=== PATIENT | male | born 1970 | race Hispanic/Latino ===

== ENCOUNTER 2024-04-19 20:19 | Emergency (ER) | payer OTHER, SELFPAY ==
[2024-04-19 20:22] VITALS: BP 156/94
[2024-04-19 20:27] LABS: Glucose - Point of Care 158 mg/dl (70-99)
[2024-04-19 21:57] VITALS: BP 140/89
[2024-04-19 22:00] VITALS: BP 148/99
--- NOTE | 2024-04-19 22:09 | ED.GENMED ---
History of Present Illness
<TESS Sampson - Last Filed: 04/20/24 01:22>
General
Chief Complaint: Dizziness
Source: patient
Time Seen by Provider: 04/19/24 22:07
History of Present Illness
History of Present Illness:
A 53 yo male with a PMH of a DM, HTN, kidney transplant, alcohol abuse disorder, afib presents to the EM with Dizziness and left sided chest pain x 7 hours. He stated that the dizziness and Left chest pain began suddenly around 3 o'clock today. He
states that the dizziness is 'like a spinning sensation' that makes him feel nauseated and like he's going to pass out. He does admit to one episode of non-billious, non bloody vomiting today. He stated that he took a 2 hour nap in his car when the
dizziness and chest pain began, but upon waking the symptoms hadn't gone away. The dizziness is also associated with diplopia and flashers which improves as long as he isn't moving around. The chest pain doesn't radiate but is associated with
unilateral L hand paresthesias. The chest pain is worse with deep inspiration. He also admits to a headache. He finally To epigastric pain. He states that the pain is worse after meals. He states the pain has been going on for a few months now. He
denies Fever,chills, nasal congestion, ear fullness.
He states that he has no medications changes other than his he is no longer on eliquis. He follows up regularly with his braille translator and pcp for this kidney function and DM. He states that he continues to check his blood sugar using a CGM. He
states that his sugars have been well-controlled ranging from the 180s to the 220.
Past History
<TESS Sampson - Last Filed: 04/20/24 01:22>
Past History
ED Past Medical History: HTN, Hypercholesterolemia, NIDDM and Renal failure
ED Past Surgical History: Orthopedic (right shoulder surgery) and Other (Kidney transplant 05/07/20)
Social History
Tobacco: Non-smoker
Alcohol: None
Personal: (still inthe courts)
Living: with family
Employment: Employed
Family History
Family History: Other (He has a father with chronic renal failure)
Phy Exam
<Dlemar Rose [facility] - Last Filed: 04/20/24 01:22>
General Physical Exam
General Presentation: well appearing and no apparent distress
General age: appears stated age
General Skin: warm and dry
General Habitus: obese
General Mental: alert
General Hydration: appears well hydrated
ENT Exam
ENT Exam: pharynx normal and lymphnodes
Eye Exam
Eye Exam: PERRL and EOMI
Cardiovascular Exam
Cardiovascular Exam: regular rate/rhythm, no gallop, no murmur and normal peripheral pulses
Pulmonary Exam
Pulmonary Exam: lungs clear, no respiratory distress, no rales, no crackles, no wheezing and no cough
Gastrointestinal Exam
Gastrointestinal Exam: normal bowel sounds, soft and non distended
Palpation: right lower quadrant: Mild tenderness and generalized: Moderate tenderness (epigastric )
Abdominal Scars: right lower quadrant
Auscultation of Abdomen: normal
Neurological Exam
Neurological Exam: alert and oriented x3
Musculoskeletal Exam
Musculoskeletal Exam: full ROM and neuro vasc intact
Skin Exam
Skin Exam: normal color and warm/dry
Course
<Delmar Rose [facility] - Last Filed: 04/20/24 01:22>
Orders/Labs/Results
Orders:
Orders
04/19/24 20:20
ECG [Electrocardiogram (*1)] Urgent
Reason for Study: Tachycardia
EKG- Treatment ONCE
04/19/24 22:51
CMP [Comprehensive Metabolic Panel] Urgent
Complete Blood Count/With Diff Urgent
Lipase Urgent
Troponin I Urgent
04/19/24 23:14
Meclizine [Antivert] 25 mg PO NOW STA
04/19/24 23:27
D-Dimer Urgent
04/19/24 23:34
0.9% Sodium Chloride 1000 ml [Nss] 1,000 ml IV BOLUS
04/20/24 00:00
CT Chest Pe Study Urgent
Reason For Exam: pleuritic L CP, elevated d-dimer
Abnormal Lab Results
04/19/24 04/19/24 04/19/24
20: 22:51 23:27
MPV 10.8 H fL
(7.4-10.4)
Abs Immat Gran (auto) 0.1 H 10^3/uL
(0-0.05)
Absolute Neuts (auto) 7.0 H 10^3/uL
(1.4-6.5)
Absolute Lymphs (auto) 0.9 L 10^3/uL
(1.2-3.4)
Immature Gran % 0.6 H %
(0-0.5)
Neutrophils % 79.5 H %
(42.2-75.2)
Lymphocytes % 10.7 L %
(20.5-51.1)
D-Dimer 1.19 H ug/mlFEU
(0.00-0.50)
Carbon Dioxide 19 L mmol/L
(22-30)
BUN 21 H mg/dl
(9-20)
Glucose 179 H mg/dl
(70-99)
Calcium 11.1 H mg/dl
(8.4-10.2)
Alkaline Phosphatase 141 H U/L
(38-126)
POC Glucose 158 H mg/dl
(70-99)
04/19/24 22:51
04/19/24 22:51
Vital Signs
Initial and Last Documented VS:
Initial Vital Signs
Temp Pulse Resp BP Pulse Ox
98.3 F 71 18 156/94 99
04/19/24 20:22 04/19/24 20:22 04/19/24 20:22 04/19/24 20:22 04/19/24 20:22
Last Documented Vital Signs
Temp Pulse Resp BP Pulse Ox
98.3 F 70 6 134/87 100
04/19/24 20:22 04/20/24 01:30 04/20/24 01:30 04/20/24 01:00 04/20/24 01:30
<Coco Layne, DO - Last Filed: 04/20/24 07:59>
Orders/Labs/Results
Orders:
Orders
04/19/24 20:20
ECG [Electrocardiogram (*1)] Urgent
Reason for Study: Tachycardia
EKG- Treatment ONCE
04/19/24 22:51
CMP [Comprehensive Metabolic Panel] Urgent
Complete Blood Count/With Diff Urgent
Lipase Urgent
Troponin I Urgent
04/19/24 23:14
Meclizine [Antivert] 25 mg PO NOW STA
04/19/24 23:27
D-Dimer Urgent
04/19/24 23:34
0.9% Sodium Chloride 1000 ml [Nss] 1,000 ml IV BOLUS
04/20/24 00:00
CT Chest Pe Study Urgent
Reason For Exam: pleuritic L CP, elevated d-dimer
Abnormal Lab Results
04/19/24 04/19/24 04/19/24
20:26 22:51 23:27
MPV 10.8 H fL
(7.4-10.4)
Abs Immat Gran (auto) 0.1 H 10^3/uL
(0-0.05)
Absolute Neuts (auto) 7.0 H 10^3/uL
(1.4-6.5)
Absolute Lymphs (auto) 0.9 L 10^3/uL
(1.2-3.4)
Immature Gran % 0.6 H %
(0-0.5)
Neutrophils % 79.5 H %
(42.2-75.2)
Lymphocytes % 10.7 L %
(20.5-51.1)
D-Dimer 1.19 H ug/mlFEU
(0.00-0.50)
Carbon Dioxide 19 L mmol/L
(22-30)
BUN 21 H mg/dl
(9-20)
Glucose 179 H mg/dl
(70-99)
Calcium 11.1 H mg/dl
(8.4-10.2)
Alkaline Phosphatase 141 H U/L
(38-126)
POC Glucose 158 H mg/dl
(70-99)
04/19/24 22:51
04/19/24 22:51
Vital Signs
Initial and Last Documented VS:
Initial Vital Signs
Temp Pulse Resp BP Pulse Ox
98.3 F 71 18 156/94 99
04/19/24 20:22 04/19/24 20:22 04/19/24 20:22 04/19/24 20:22 04/19/24 20:22
Last Documented Vital Signs
Temp Pulse Resp BP Pulse Ox
98.3 F 70 6 134/87 100
04/19/24 20:22 04/20/24 01:30 04/20/24 01:30 04/20/24 01:00 04/20/24 01:30
<TESS Sapmson - Last Filed: 04/20/24 01:22>
MDM/Problems Addressed
Differential Diagnosis Includes:
pulmonary embolism, myocardial infarction, acute pancreatitis.
<TESS Sampson - Last Filed: 04/20/24 01:22>
*Critical Care Note
Total Time (30-74mins, 75-104mins- exclusive of procedures): Not Applicable
<Coco Layne DO - Last Filed: 04/20/24 07:59>
*Radiology
Radiology exam reviewed: radiology read reviewed
*Pulse Oximetry
Patient hypoxic: no
*EKG
Interpreted by ED Provider?: Yes
Comparison EKG: no changes (Unchanged from previous November 2022)
Rate: normal
Rhythm: sinus and PAC's
[place]: left axis deviation
Interval: normal interval
QRS Pattern: left vent hypertrophy
Ischemia: no ischemia
*Photo Lab Technician Interpretation
Rate: normal
Interpretation: normal
Rhythm: sinus
<TESS Sampson - Last Filed: 04/20/24 01:22>
Update Note
Update Note:
04/20/2024 0120 AM: Patient was resting comfortably when I entered the room. Chatted with the patient about symptoms of dizziness which he stated have improved significantly. Will proceed with a walking trial for return of symptoms.
ED Attending Note
<TESS Sampson - Last Filed: 04/20/24 01:22>
-
Portions of this chart may have been created with voice recognition software.� Occasional wrong word or��sound alike� substitutions may have occurred due to the inherent limitations of voice recognition software.
<Coco Layne DO - Last Filed: 04/20/24 07:59>
ED Attending Note
Patient seen and examined by attending physician: Yes
I performed the substantive portion of visit, reviewed & personally made and approve the management plan that is documented in note by myself or SALLY.: Yes
ED Attending Note:
This is a 53-year-old gentleman who has extensive past medical history including insulin requiring diabetes, chronic kidney disease status post renal transplant 2019�no longer requiring dialysis, hypertension, atrial tachycardia. Since last
hospitalization November 2022 where he was admitted for HHNK, started on insulin at that time patient has been doing quite well, blood sugars have been fairly well-controlled 160-220 average. He has maintained normal renal function, follows regularly
with braille translator as well as renal transplant specialist at [place].
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
lightheadedness as well as some palpitations feeling that his heart was beating somewhat hard and mildly rapidly but denies irregular heartbeat and also noted mild left anterior chest discomfort. No history of similar episodes in the past.
He left the restaurant, went out to his car to rest and took a 2-hour nap but then when he attempted to get up out of the car dizziness and nausea recurred. Symptoms seem worse when he attempts to get up and move about, improves when he sits still.
He has had mild frontal headache but no nasal congestion, no earache, no hearing difficulty. No cough no shortness of breath but does note that left-sided chest pain seems worse when he takes a deep breath.
Currently denies headache. He has not had a fever nor chills.
GENERAL: 53-year-old gentleman appears his stated age, bright and alert, pleasant, appears in no acute distress.
EYE: pupils equal and reactive. Extraocular muscles intact. Negative test of skew. Questionably minimally positive head impulse to the left. Anicteric
NECK: Supple, nontender, no meningismus, no significant adenopathy.
ENT: posterior pharynx is clear, oral mucosa is moist. TM clear b/l, nares patent.
CARDIAC: Regular rate and rhythm. no murmur.
LUNGS: Clear breath sounds bilaterally, no acute respiratory distress, no wheezes/rales/rhonchi
ABDOMEN: Soft, nondistended, without focal tenderness, no r/g, normoactive BS.
NEUROLOGICAL: Alert and oriented x3, no focal neuro deficits. Mild vertiginous symptoms reproducible with sitting up, lying flat
SKIN: Warm and dry, normal color, skin intact. No rash.
MUSCULOSKELETAL: No C/C/E. peripheral pulses are full and equal b/l. No palpable tenderness.
PSYCH: Normal and appropriate interaction.
Concern for acute vertigo which appears more peripheral/positional in nature.
Other consideration is electrolyte abnormality, tachyarrhythmia, anemia
With complaints of left anterior chest pain, somewhat pleuritic in nature must consider ACS, pneumonia, PE. Overall chest pain appears mild, intermittent and somewhat of its secondary issue, no back pain, dissection is unlikely.
Patient has CGM, he has had no episodes of hypoglycemia nor significant hyperglycemia. Accu-Chek upon arrival satisfactory at 158.
Will trial a dose of meclizine. Will check labs including troponin and D-dimer.
EKG shows normal sinus rhythm with PAC, LVH, overall similar to previous EKG November 2022.
Will consider imaging depending on results
04/20/2024 0141 AM
Patient reports complete relief of dizziness, nausea after 1 dose of meclizine. Ambulating about exam room with steady unaided gait and remains asymptomatic.
Labs are unremarkable save for elevated D-dimer thus CT of the chest/PE study obtained which is negative for PE.
There is note on CT of the left upper lobe nodule that has increased in size compared to previous CAT scan 2019. There is note of mild right lower lobe bronchial wall thickening concerning for infectious/inflammatory process.
Patient continues to have no cough, no fever, no shortness of breath, I suspect this right lower lobe bronchial wall thickening is nonspecific inflammatory in nature.
Patient notified of pulmonary nodule and need for follow-up.
Will discharge to home with a prescription for meclizine for as needed dizziness.
Discussed importance of remaining well-hydrated on a daily basis.
Prompt follow-up with PCP.
Return precautions discussed.
Discharge Plan
Departure
Patient Disposition: Home (Routine Discharge)
Date of Disposition: 04/20/24
Time of Disposition: 01:37
Patient with high blood pressure during this ER visit?: No
Condition: Good
Discharge Problem:
Benign paroxysmal positional vertigo, nonspecific left chest pain
Instructions: Vertigo (a Type of Dizziness) (DC), Chest Pain PCP Follow Up
Prescriptions:
New
meclizine 25 mg tablet
25 mg PO QID PRN (Reason: dizziness, nausea) Qty: 20 0RF
No Action
tacrolimus 0.5 MG capsule
1 mg PO BID
pantoprazole 40 MG tablet,delayed release (DR/EC)
40 mg PO DAILY
sildenafil 50 mg tablet
50 mg PO DAILYPRN PRN (Reason: ed)
mycophenolate sodium 180 mg tablet,delayed release (DR/EC)
360 mg PO BID
metoprolol tartrate 25 mg Tablet
75 mg PO BID Qty: 180 1RF
(DME) Contour Next Test Strips Strip
Qty: 200 0RF
Rx Instructions:
Pt testing 4 times a day
(DME) pen needle, diabetic [BD Ultra-Fine Kellee Pen Needle] 32 gauge x 5/32' Needle
Qty: 1,200 0RF
Rx Instructions:
As Directed
(DME) lancets [Color Lancets] 21 gauge Misc
Qty: 200 0RF
Rx Instructions:
Pt testing 4 times a day
(DME) pen needle, diabetic [BD Ultra-Fine Kellee Pen Needle] 32 gauge x 5/32' Needle
Qty: 200 0RF
Rx Instructions:
Pt taking insulin 4 times a day
insulin aspart U-100 [Novolog FlexPen U-100 Insulin] 100 unit/mL (3 mL) insulin pen
16 unit SC AC
insulin glargine [Lantus Solostar U-100 Insulin] 100 unit/mL (3 mL) insulin pen
35 unit SC HS
Referrals:
Tita Resendez PA-C [Family Provider] - Call in 1-3 days for appt
Interventions
Interventions:
*Risk Screen - Suicide Last Done: 04/19/24 22:42
*General Assessment Last Done: 04/19/24 20:22
*Neglect/Abuse Screening Last Done: 04/19/24 22:42
ED- Fall Risk Assessment Last Done: 04/20/24 01:48
*ED COVID-19 Vaccine History Last Done: 04/19/24 22:42
*Nursing Disposition Last Done: 04/20/24 01:48
ED- Neurological Assessment Last Done: 04/19/24 22:42
ED- Cardiac Assessment Last Done: 04/19/24 22:42
ED Swallowing Screen Last Done: 04/19/24 22:42
Discharge Date and Time
Discharge Date/Time: 04/20/24 01:51
Print Language: [place]AST [place]
[2024-04-19 22:41] VITALS: BMI 30.3
[2024-04-19 23:00] VITALS: BP 148/84
[2024-04-19 23:00] LABS: % Basophils 0.7 % (0-2); % Eosinophils 1.6 % (0-6); % Immature Granulocytes 0.6 % (0-0.5); % Lymphocytes 10.7 % (20.5-51.1); % Monocytes 6.9 % (1.7-9.3); % Neutrophils 79.5 % (42.2-75.2); Absolute Basophils 0.1 10^3/uL (0-0.2); Absolute Eosinophils 0.1 10^3/uL (0-0.7); Absolute Immature Granulocytes 0.1 10^3/uL (0-0.05); Absolute Lymphocytes 0.9 10^3/uL (1.2-3.4); Absolute Monocytes 0.6 10^3/uL (0.1-0.6); Hematocrit 42.1 % (39.0-52.0); Hemoglobin 14.5 g/dL (13.0-18.0); Mean Corp Hgb Conc. 34.4 g/dL (33.0-37.0); Mean Corpuscular Hgb 30.1 pg (27.0-31.0); Mean Corpuscular Volume 87.5 fL (80.0-94.0); Mean Platelet Volume 10.8 fL (7.4-10.4); Nucleated Red Blood Cells % 0 % (-); Platelet Count 171 10^3/uL (130-400); Red Blood Cell Count 4.81 10^6/uL (4.70-6.10); Red Cell Dist. Width 12.7 % (11.5-14.5); White Blood Cell Count 8.8 10^3/uL (4.8-10.8)
[2024-04-19 23:21] LABS: ALT (SGPT) 39 U/L (0-50); AST (SGOT) 35 U/L (17-59); Albumin 4.7 g/dl (3.5-5.0); Alkaline Phosphatase 141 U/L (38-126); Blood Urea Nitrogen 21 mg/dl (9-20); Calcium 11.1 mg/dl (8.4-10.2); Carbon Dioxide 19 mmol/L (22-30); Chloride 104 mmol/L (98-107); Estimated Creatinine Clearance 74 ml/min; Glucose 179 mg/dl (70-99); Lipase 152 U/L (23-300); Potassium 4.6 mmol/L (3.5-5.1); Sodium 137 mmol/L (135-145); Total Bilirubin 0.9 mg/dl (0.2-1.3); Total Protein 7.4 g/dl (6.3-8.2); eGFR > 60.00
[2024-04-19 23:25] LABS: Troponin I < 0.012 ng/ml
[2024-04-19] MEDS: ANTIVERT 25 MG PO (23:28)
[2024-04-19 23:51] LABS: D-Dimer 1.19 ug/mlFEU (0.00-0.50)
[2024-04-19] MEDS: NSS 1000 IV (23:56)
[2024-04-20] VITALS: BP 134/79
[2024-04-20 01:00] VITALS: BP 134/87
== END 2024-04-20 01:51 | disposition home or self-care (01) ==
LOC: EMR 20:19
PROVIDERS: Student in an Organized Health Care Education/Training Program; EMERGENCY PHYSICIAN Emergency Medicine; FAMILY PHYSICIAN Physician Assistant
DX: H81.10 Benign paroxysmal vertigo, unspecified ear (principal); R07.89 Other chest pain; E11.22 Type 2 diabetes mellitus with diabetic chronic kidney disease; I12.9 Hypertensive chronic kidney disease with stage 1 through stage 4 chronic kidney disease, or unspecified chronic kidney disease; I48.91 Unspecified atrial fibrillation; N18.9 Chronic kidney disease, unspecified; Z94.0 Kidney transplant status
CPT/HCPCS: 99285; 96360; 71275; 80053; 82962; 83690; 84484; 85025; 85379; 93005; Q9967

== ENCOUNTER → 2024-05-12 12:49 | Outpatient (REF) | payer OTHER, SELFPAY | LOC: RAD 12:49 | PROVIDERS: ATTENDING PHYSICIAN Internal Medicine Critical Care Medicine; FAMILY PHYSICIAN Physician Assistant | DX: R91.1 Solitary pulmonary nodule (principal) | CPT/HCPCS: 71250 ==

== ENCOUNTER 2024-06-01 06:18 | Day surgery (SDC) | payer OTHER, SELFPAY ==
--- NOTE | 2024-05-25 15:16 | PTCARENOTE ---
EKG from 05/12 abn, anesthesia requested cardiology note. Cardiology note scanned.
[2024-06-01] VITALS (9 sets, daily range): BP systolic 115–133; BP diastolic 74–87; BMI 32.2
[2024-06-01 06:50] LABS: Glucose - Point of Care 232 mg/dl (70-99)
[2024-06-01] MEDS: NOVOLOG vial 2 UNITS SC (07:30)
[2024-06-01 09:08] LABS: Glucose - Point of Care 190 mg/dl (70-99)
== END 2024-06-01 11:20 | disposition home or self-care (01) ==
LOC: GI 06:18
PROVIDERS: ATTENDING PHYSICIAN Internal Medicine Critical Care Medicine
DX: C7A.090 Malignant carcinoid tumor of the bronchus and lung (principal); R91.1 Solitary pulmonary nodule
CPT/HCPCS: 31629; 31623; 31624; 31627; 31654; 88172; 88173; 88305; 71045; 76000; 82962; 88112; 88333; 88334; 88341; 88342; 94640; C1887

== ENCOUNTER → 2024-06-22 07:42 | Outpatient (REF) | payer OTHER, SELFPAY | LOC: PET 07:42 | PROVIDERS: ATTENDING PHYSICIAN Internal Medicine Critical Care Medicine | DX: C7A.090 Malignant carcinoid tumor of the bronchus and lung (principal) | CPT/HCPCS: 78815 ==

== ENCOUNTER 2024-07-13 05:06 | Inpatient (IN) | payer OTHER, SELFPAY ==
[2024-07-07 09:11] LABS: INR 0.89; PT 12.3 Sec (11.4-14.6)
[2024-07-07 09:12] LABS: APTT 26.9 Sec (23.4-35.0)
[2024-07-07 09:26] LABS: Urine Albumin Trace (Neg - Trace); Urine Bilirubin Negative (Negative); Urine Character Clear (Clear); Urine Color Yellow; Urine Glucose 3+ (Negative); Urine Ketone Negative (Negative); Urine Leukocyte Negative (Negative); Urine Nitrite Negative (Negative); Urine Occult Blood Negative (Negative); Urine Urobilinogen Negative (Neg - 1+)
[2024-07-07 09:35] LABS: ALT (SGPT) 35 U/L (0-50); AST (SGOT) 29 U/L (17-59); Albumin 4.4 g/dl (3.5-5.0); Alkaline Phosphatase 192 U/L (38-126); Blood Urea Nitrogen 14 mg/dl (9-20); Calcium 10.4 mg/dl (8.4-10.2); Carbon Dioxide 26 mmol/L (22-30); Chloride 101 mmol/L (98-107); Estimated Creatinine Clearance 81 ml/min; Glucose 270 mg/dl (70-99); Potassium 4.3 mmol/L (3.5-5.1); Sodium 136 mmol/L (135-145); Total Bilirubin 0.9 mg/dl (0.2-1.3); eGFR > 60.00
--- NOTE | 2024-07-07 09:35 | CM ---
Met with Mr. Garcia in [facility];. He states prior to admission he resides alone in a one story mobile home with three steps to enter. He states prior to admission he was independent with ambulation and adls. He states he does not have any DME in the
home. He states he has a prescription plan. He states he is planning on staying with his cousin for two days before going to his home after surgery. The discharge plan is to go to his cousin home for two days and then return home alone with a home
visit by the Transitional Care Nurse when medically stable.
We reviewed pre-op and post-op routines. We reviewed the shower instructions. He has the soap, written instruction and the Thoracic,(lung) Surgery Booklet. We also reviewed restrictions including lifting and driving restrictions. We discussed a
home visit by the Transitional Care Nurse. He is agreeable to a home visit. The plan is for Robotic Left Lobectomy on Saturday, July 13, 2024.
[2024-07-07 09:38] LABS: % Basophils 0.9 % (0-2); % Eosinophils 2.8 % (0-6); % Immature Granulocytes 0.9 % (0-0.5); % Monocytes 9.3 % (1.7-9.3); % Neutrophils 68.1 % (42.2-75.2); Absolute Basophils 0.1 10^3/uL (0-0.2); Absolute Eosinophils 0.2 10^3/uL (0-0.7); Absolute Immature Granulocytes 0.1 10^3/uL (0-0.05); Absolute Monocytes 0.5 10^3/uL (0.1-0.6); Absolute Neutrophils 3.7 10^3/uL (1.4-6.5); Hematocrit 40.7 % (39.0-52.0); Mean Corp Hgb Conc. 34.4 g/dL (33.0-37.0); Mean Corpuscular Hgb 30.6 pg (27.0-31.0); Mean Corpuscular Volume 88.9 fL (80.0-94.0); Mean Platelet Volume 11.3 fL (7.4-10.4); Nucleated Red Blood Cells % 0 % (-); Platelet Count 144 10^3/uL (130-400); Red Blood Cell Count 4.58 10^6/uL (4.70-6.10); Red Cell Dist. Width 12.4 % (11.5-14.5); White Blood Cell Count 5.4 10^3/uL (4.8-10.8)
[2024-07-13] VITALS (18 sets, daily range): BP systolic 111–159; BP diastolic 74–112; BMI 31.1
--- NOTE | 2024-07-13 06:27 | W.CVOR.SURPR ---
CVOR Surgeon Immed Pre Op
-
I have examined this patient prior to performance of the scheduled procedure.
The patient's condition is unchanged from the time of the dictated/written History and
Physical and the patient is able to undergo the scheduled procedure.
RATS LEFT Upper lobectomy + LN Dissection for carcinoid tumor
--- NOTE | 2024-07-13 07:39 | PTCARENOTE ---
Admitted patient to CVICU. Preop prep completed. Clipped and CHG wipes applied. Transported to [facility] at approx 0640
[2024-07-13 07:55] LABS: Urine Albumin Trace (Neg - Trace); Urine Bilirubin Negative (Negative); Urine Character Clear (Clear); Urine Color Yellow; Urine Glucose 3+ (Negative); Urine Ketone Negative (Negative); Urine Leukocyte Negative (Negative); Urine Nitrite Negative (Negative); Urine Occult Blood Negative (Negative); Urine Urobilinogen Negative (Neg - 1+)
--- NOTE | 2024-07-13 08:31 | CM ---
Reviewed chart. Mr. Garcia is in the operating room today. Prior to admission he resides alone in a one story home with three steps to enter. Prior to admission he was independent with ambulation and adls. He does not have any DME in the home. He
has a prescription plan. He is planning on staying two days with his cousin when he goes home. Medical work-up in progress. The discharge plan is to go to his cousin's home for two days and a home visit by the Transitional Care Nurse when
medically stable.
[2024-07-13 08:58] LABS: Glucose - Point of Care 239 mg/dl (70-99)
[2024-07-13 09:50] LABS: B.E. - POC -5.8 mmol/L; Glucose - POC 303 mg/dl (70-99); HCO3 - POC 23 mmol/L (21-28); Hematocrit - POC 43 % PCV (42-52); Hemodilution- POC No; Hemoglobin Calculated - POC 14.5; Ionized Calcium - POC 1.46 mmol/L (1.15-1.33); O2 Saturation %Calculated-POC 96.1 % (94-98); PCO2 - POC 58 mmHg (35-48); PO2 - POC 102 mmHg (83-108); POC Comment ROBOT LUNG; Potassium - POC 4.8 mmol/L (3.5-5.1); Sodium - POC 136 mmol/L (136-145); Specimen Type - POC Arterial; pH - POC 7.21 (7.35-7.45)
[2024-07-13 10:14] LABS: B.E. - POC -5.5 mmol/L; Glucose - POC 302 mg/dl (70-99); HCO3 - POC 23 mmol/L (21-28); Hematocrit - POC 42 % PCV (42-52); Hemodilution- POC No; Hemoglobin Calculated - POC 14.4; Ionized Calcium - POC 1.42 mmol/L (1.15-1.33); O2 Saturation %Calculated-POC 97.2 % (94-98); PCO2 - POC 54 mmHg (35-48); PO2 - POC 111 mmHg (83-108); POC Comment SAMPLE B2; Potassium - POC 5.1 mmol/L (3.5-5.1); Sodium - POC 136 mmol/L (136-145); Specimen Type - POC Arterial; pH - POC 7.23 (7.35-7.45)
[2024-07-13 11:03] LABS: Glucose - Point of Care 214 mg/dl (70-99)
[2024-07-13 11:56] LABS: Glucose - Point of Care 243 mg/dl (70-99)
--- NOTE | 2024-07-13 12:03 | CON.INTV ---
Consultation
Consultation Request
Date/Time Consultation Requested: 07/13/2024-12:30 PM
Date/Time Consultation Performed: 07/13/2024-1 PM
Requesting Provider: Thoracic surgery
Performing Provider: Dr. Parekh
Reason for Consultation: Postoperative critical care management
Medical History
-
Chief Complaint: Lung cancer
History of Present Illness:
53-year-old former smoking male recently diagnosed with a solitary left upper lobe pulmonary nodule 2 cm and underwent robotic bronchoscopy noted to have lung cancer and underwent robotic assisted thoracic surgery with left upper lobectomy and lymph
node dissection-Dr. Vargas-07/13/2024-technical director consulted for postoperative critical care management 07/13/2024.. The patient is seen postoperatively in the medical intensive care unit, extubated, however, very somnolent and unable to obtain review
of systems, snoring with probable Hypopneas.
Past Medical History
Past Medical History: None (Hypertension. Hyperlipidemia. ESRD/hemodialysis. Atrial fibrillation/flutter. Diabetes. Right foot surgery. Umbilical herniography with mesh. AV fistula. Kidney transplant 2019.)
Social History
Tobacco: Former Smoker (1 pack/week for 7 years)
Alcohol: None
Drug: None
Living: With Family
Occupational Exposures: No known asbestos exposure
Environmental Exposures: No known tuberculosis exposure
Family History
Family History: Other (Father-diabetes and renal disease. Mother-hypertension and diabetes. Paternal grandfather-diabetes. Paternal grandmother-renal disease.)
Allergies / Home Medications
Allergies
Allergy/AdvReac Type Severity Reaction Status Date / Time
shellfish derived Allergy Rash Verified 07/03/24 09:14
vancomycin Allergy feeling of Verified 07/03/24 09:14
body 'hot'
and some
'itching'
Home Medications
�Medication �Instructions �Recorded �Confirmed �Last Taken �Type
pantoprazole 40 mg tablet,delayed 40 mg PO DAILY 12/28/21 07/13/24 07/12/24 History
release
tacrolimus 0.5 mg capsule, 1 mg PO HS 12/28/21 07/13/24 07/12/24 History
immediate-release
mycophenolate sodium 180 mg 360 mg PO BID 09/14/22 07/13/24 07/12/24 History
tablet,delayed release
sildenafil 50 mg tablet 50 mg PO DAILYPRN PRN ed 09/14/22 07/03/24 05/25/24 History
blood sugar diagnostic (Contour #200 ea 12/17/22 07/03/24 Unknown Rx
Next Test Strips)
lancets 21 gauge (Color Lancets) #200 ea 12/17/22 07/03/24 Unknown Rx
pen needle, diabetic 32 gauge x #1,200 ea 12/17/22 07/03/24 Unknown Rx
5/32' (BD Ultra-Fine Kellee Pen
Needle)
pen needle, diabetic 32 gauge x #200 ea 12/20/22 07/03/24 Unknown Rx
5/32' (BD Ultra-Fine Kellee Pen
Needle)
insulin aspart U-100 100 unit/mL 18 unit SC AC Diabetes 04/19/24 07/13/24 07/12/24 History
(3 mL) subcutaneous pen (Novolog
FlexPen U-100 Insulin aspart)
insulin glargine 100 unit/mL (3 37 unit SC HS Diabetes 04/19/24 07/13/24 07/12/24 21:30 History
mL) subcutaneous pen (Lantus
Solostar U-100 Insulin)
meclizine 25 mg tablet 25 mg PO QID PRN dizziness, nausea 04/20/24 07/03/24 Unknown Rx
#20 tabs
metoprolol tartrate 75 mg tablet 75 mg PO BID 05/29/24 07/13/24 07/12/24 History
tacrolimus 0.5 mg capsule, 2 mg PO DAILY 05/29/24 07/13/24 07/12/24 History
immediate-release
Review of Systems
-
Unable to Obtain full review of systems at this time due to: Other (Per HPI)
Vitals / Labs / Diagnostic Testing
Vital Signs
Temp Pulse Resp BP Pulse Ox
97.8 F 67 16 133/90 99
07/13/24 05:33 07/13/24 05:33 07/13/24 05:33 07/13/24 05:33 07/13/24 05:33
Lab Data
07/07/24 08:37
07/07/24 08:37
Diagnostic Testing:
Physical Exam
-
Exam:
Well-nourished and well-developed in no apparent distress
HEENT-atraumatic, normocephalic, thick neck
Neck-supple, no JVD, no bruit
Heart-regular rate and rhythm-no murmurs, rubs or gallops
Chest-clear to auscultation, no wheezes, crackles, left-sided chest tube on waterseal
Back-no tenderness
Abdomen-soft, nontender, nondistended, no hepatosplenomegaly
Extremities-no cyanosis, clubbing, edema and good peripheral pulses
Integument-intact, no rashes, lesions or ecchymosis
Neurology-sedated, lethargic, otherwise alert and oriented, nonfocal motor and sensory exam
Assessment
-
53-year-old former smoking male recently diagnosed with a solitary left upper lobe pulmonary nodule 2 cm and underwent robotic bronchoscopy noted to have lung cancer and underwent robotic assisted thoracic surgery with left upper lobectomy and lymph
node dissection-Dr. Vargas-07/13/2024-technical director consulted for postoperative critical care management 07/13/2024.
Lung cancer-carcinoid tumor-stage I
Enlarging pulmonary nodule-1.5 cm up to 1.9 cm 05/2024
Status post robotic bronchoscopy 06/01/2024-positive for carcinoid tumor
Status post robotic assisted thoracic surgery with left upper lobectomy and lymph node dissection-Dr. Vargas-07/13/2024
[id number]
ANALI suspected
Conditions present prior to admission:
Hypertension.
Hyperlipidemia.
ESRD/hemodialysis.
Atrial fibrillation/flutter.
Diabetes.
Obesity-BMI 31
Right foot surgery. Umbilical herniography with mesh. AV fistula. Kidney transplant 2019.
Plan
Radiographs, bronchoscopy results, pathology all summarized below
Stable postoperatively in the cardiovascular intensive care unit
Supplemental oxygen as needed
Incentive spirometry
Aspiration precautions
Nebulizers if needed-currently not bronchospastic
Operative records reviewed
Chest tubes per surgery-monitor output-currently on waterseal
Follow hemoglobin
Transfuse if needed
Monitor renal function
Immunosuppressive medications for renal transplantation-follows with Dr. Torres
Monitor for arrhythmias-has a history of paroxysmal atrial fibrillation
Monitor blood sugar
Insulin drip or supplementation as needed
Needs much better outpatient diabetes control-A1c 11%
DVT prophylaxis
Nutrition
Early mobilization
Outpatient pulmonary/sleep disorders [id number] appointment 12 noon 08/25/[address] Parekh-eventual repeat PFTs-would evaluate for sleep apnea as well
Critical care statement: A total of 55 minutes of critical care time was provided for this patient today. This includes management of unstable vital signs, evaluation of the patient at bedside, reviewing the patient's pertinent medical records
including radiographs, microbiology, laboratory evaluations, and discussion with primary team, consultants, pharmacy, nutrition, physical therapy, case management, charge nurse, critical care nursing, and respiratory therapy.
Diagnostic data:
Chest x-ray 07/22/18-possible mild right lower lobe pneumonia, improved.
CT chest 07/22/18-no evidence for pulmonary embolism, moderate groundglass opacifications in both lower lobes concerning for developing pneumonia versus interstitial lung disease, stable circumscribed noncalcified pulmonary nodule left upper lobe
approximately 1.5 cm, slightly progressed.� Probable parenchymal scarringChest x-ray 12/14/22-NAD, no focal consolidation
CT chest 04/20/24-no evidence for pulmonary embolism, 1.9 cm nodule left upper lobe with lobulated margins increased in size compared to 07/2018.
PET scan 06/22/24-2 cm left upper lobe carcinoid tumor is added measuring 3.1 SUV, no evidence for metastatic disease
6 minute walk test 05/05/24-ambulated 1200 feet with desaturation romy of 97% maximal heart rate 110.� Maximum dyspnea scale score 1.0.� No supplemental oxygen required�����
PFT 05/05/24-FEV1 3.09-95%, FVC 3.62-86%, TLC 84%, RV 70%, DLCO 104%, DLCO/ 115%.� Mild restriction.
Bronchoscopy 06/01/2024-left upper lobe brush consistent with carcinoid tumor, left upper lobe transbronchial needle aspiration consistent with carcinoid tumor, left upper lobe bronchoalveolar lavage negative for malignant cells
Bronchoscopy 06/01/2024-left upper lobe nodule biopsy well-differentiated neuroendocrine neoplasm compatible with carcinoid tumor
Data Reviewed
-
PFT: Tracing personally visualized and interpreted and Report reviewed by me
EKG: Report reviewed by me
Radiology: Image personally visualized and interpreted and Report reviewed by me
CT Scan: Image personally visualized and interpreted and Report reviewed by me
Medical Tests (Nuc Med, Echo etc): Report reviewed by me
Labs: Labs reviewed by me
Old Records: Reviewed
Critical Care Time (in minutes): 55
[2024-07-13] MEDS: ANCEF IV (12:05)
--- NOTE | 2024-07-13 12:07 | W.PN.CT.SURG ---
CT Surgery Operative Note
-
THORACIC SURGERY OPERATIVE REPORT
Preoperative Diagnosis: Left Upper Lobe Carcinoid Tumor
Postoperative Diagnosis: Same
Procedure(s) Performed:
1. Robotic Assisted Thoracic Surgery (RATS), Left Upper Lobectomy
2. Radical Lymph Node dissection
3. Regional Block By Anesthesia
Date of Surgery: 07/13/24
Comorbidities:
1. Pulmonary Carcinoid
2. Type 2 Diabetes
3. HTN
4. Renal Failure, requiring DH
5. Renal Transplant, on chronic immunosuppression
6. H/o arrythmias, SVT
7. Morbidly Obese
8. Active Tobacco Abuse
Attending Surgeon: Luis Alberto Vargas MD, MS
Assistants: Carmenza Ernst PA-C (present and necessary to compounding assistant, exchanging robotic instruments, retraction, suction, exposure, suture management, and wound closure under my direction)
Anesthesiology: Alfred Welch MD and Nik Lezama CRNA
Scrub and Circulating RNs: Hedy Swenson RN, Renetta Hoskins RN
Anesthesia: Dual Lumen GETA
EBL: 100 cc
Products: None
Indication(s) for Procedures: This is a 53-year-old male who was found to have a left upper lobe nodule. Biopsy demonstrated minute fragments of well-differentiated neuroendocrine neoplasm compatible with a carcinoid tumor. Given the location of
the tumor, the patient was aware that he would likely need to undergo a full left upper lobectomy with lymph node dissection. Preoperative discussion with his transplant center was performed in order to help manage his medications. Plan was for
left upper lobectomy with lymph node dissection.
Findings: There were no obvious intrathoracic lesions concerning for metachronous disease. He had a well-defined left upper and left lower lobe fissure. Given his history of transplant and chronic immunosuppression, his tissue quality was quite
abnormal. I was able to individually isolate the posterior ascending and truncal branches as well as the lingular branches leading to the left upper lobe. These were then sequentially divided. The bronchus leading to the left upper lobe were
divided as of the veins individually. At the conclusion of the case, he had no obvious air leak, and unobstructed flow to the remaining left lower lobe.
Specimen(s):
Station 10, x 3 nodes
Station 11, x 1 nodes
Station 5/6, x 4 nodes
left upper lobe
Description of Procedure: The patient was taken to the operating room. Induction via general anesthesia with endotracheal intubation was performed and peripheral venous access and arterial monitoring were inserted. Their identity and procedure to be
performed were verified and they were positioned with the left side up on the operating table. The patient was then prepped and draped in a sterile fashion. A preoperative time-out was performed with all members of the team present. A Veress needle
was used to insufflate the chest after isolating the lung. An 8 mm port was placed in the midaxillary line at approximately the eighth intercostal space and confirmed to be intrathoracic without significant pulmonary injury. The chest was surveyed
for any evidence of metastatic disease. Patient tolerate insufflation without complication. 2 additional 12 mm trocars were placed on either side under camera guidance and a third 8 mm trocar was placed along the back. A 12 mm phlebotomist lab assistant port was
placed in the 11th intercostal space above the insertion of the diaphragm.
The thoracic cavity was inspected for evidence of metastatic disease. None was observed. We started with mobilization of the inferior pulmonary ligament. We worked our way clockwise dissecting out the hilum and harvest any lymph nodes identified.
The pulmonary arteries and veins leading to the left upper lobe were identified and skeletonized. They were sequentially divided with a white load stapler. I had dissected the bronchus leading to the apical and lingular segments and able to divide
them individually. The specimen was displaced toward the apex while a chest tube was inserted and placed laterally towards the apex. I noticed there was some oozing at the bronchial stump, this was clipped with a single small/medial metal clip for
hemostasis with good effect. Coseal was used to reinforce the staple lines and hilum. The left upper was then placed into a specimen bag and extracted from the chest cavity. After confirming hemostasis, the lung was fully inflated and all ports
were removed. Incisions were closed in 3 layers including the fascia, dermal, and epidermis. Additional local anesthesia was injected into all incision sites. The skin wound was cleansed and sealed with Dermabond glue.
All instrument, sponge, and needle counts were confirmed to be correct x 2 at the end of the operation. The patient was transferred to the cardiac intensive care unit extubated in critical but stable condition.
I, Dr. Luis Alberto Vargas, was present, scrubbed for, and performed all critical elements of this procedure.
Luis Alberto Vargas MD, MS
Cardiothoracic Surgeon
[facility]
This operative dictation was created using the S[employer]ula dictation system. Please excuse any grammatical, typographical, or 'sound alike' errors
[2024-07-13] MEDS: NOVOLOG vial 2 UNITS SC (12:10)
[2024-07-13] MEDS: DILAUDID 0.5 MG IV ×3 (12:17→17:23)
[2024-07-13] MEDS: MIRALAX PO (13:11)
[2024-07-13] MEDS: ANCEF 10 IV ×2 (13:11)
[2024-07-13] MEDS: HEPARIN 5000 UNITS SC ×2 (13:12→15:48)
[2024-07-13] MEDS: SENOKOT PO (13:12)
--- NOTE | 2024-07-13 13:24 | PTCARENOTE ---
received pt from PACU into 2261, pt is AAOX4, PISANO to simple commands, pupils +2 equally reactive to light. sinus tachycardia on tele w HR low 100's, BP via right radial renetta 140's/ 80-90, + peripheral pulses, no edema noted. Lung sounds diminished,
pox 94% on 2L NC. Hypoactive BS, pt denies nausea. Pt is DTV. Left lateral chest a incision w surgical glue intact, puncture site a glue intact. Left lateral pleural CT to H20 seal a minimal amount of red drainage. Right radial renetta leveled and
zeroed, PIV x2 flush easily, left arm fistula noted. CT SALLY made aware of elevated BP and c/o pain to surgical site, awaiting orders. Safety precautions reviewed w the pt and questions encouraged.
[2024-07-13] MEDS: ROXICODONE 10 MG PO ×2 (13:54→19:39)
[2024-07-13] MEDS: ULTRAM 50 MG PO (14:31)
[2024-07-13] MEDS: PROGRAF 2 MG PO (14:31)
--- NOTE | 2024-07-13 15:15 | PTCARENOTE ---
pt medicated for pain, minimal drainage from CT
[2024-07-13] MEDS: LOPRESSOR 75 MG PO ×2 (15:47→19:39)
[2024-07-13 16:02] LABS: Glucose - Point of Care 252 mg/dl (70-99)
[2024-07-13] MEDS: FLEXERIL 10 MG PO (17:18)
[2024-07-13] MEDS: ANCEF 5 IV (17:20)
[2024-07-13] MEDS: NOVOLOG FLEXPEN 18 UNITS SC (17:29)
[2024-07-13 17:30] LABS: Glucose - Point of Care 268 mg/dl (70-99)
[2024-07-13] MEDS: MYFORTIC DELAYED REL. 360 MG PO (19:39)
--- NOTE | 2024-07-13 20:13 | PTCARENOTE ---
pt assisted OOB to chair, tolerated well. Assisted w PM mouth care and CHG bath, monitor patches and gown changed. Pt medicated for pain. Minimal red drainage from CT. Pt medicated for pain. IS reviewed and encouraged. Pt BP remain elevated at
times, cardene ordered by daytime CT SALLY, interaction w renal transplant medications per pharmacy. Night CT SALLY made aware. Metoprolol administered as ordered. Will monitor.
[2024-07-13] MEDS: SENOKOT 8.6 MG PO (20:51)
[2024-07-13 22:08] LABS: Glucose - Point of Care 220 mg/dl (70-99)
[2024-07-13] MEDS: LANTUS 0.37 UNITS SC (22:08)
[2024-07-13] MEDS: PROGRAF 1 MG PO (22:08)
--- NOTE | 2024-07-13 23:00 | PTCARENOTE ---
report received from previous RN, walking rounds done. pt in bed, AAOx4. pt reports pain is tolerable at this time. VSS. NSR on monitor, HR 60s. B/L radial and DP pulses palpable. heart tones clear. right radial arterial line intact. SBP 110s. B/L
breath sounds present. POX 95% on room air. CT x1 intact to water seal; drainage WNL, no air leak present. IS encouraged. pt voids in urinal without difficulty. bowel sounds present. PIV x2 intact and patent. all surgical sites stable. see worklist
for full assessment, VS, and interventions. pt resting comfortably.
[2024-07-14] VITALS (26 sets, daily range): BP systolic 94–141; BP diastolic 60–94; BMI 31.2
[2024-07-14] MEDS: HEPARIN 5000 UNITS SC (00:08)
[2024-07-14] MEDS: ROXICODONE 10 MG PO ×2 (00:08→05:15)
[2024-07-14] MEDS: ANCEF 5 IV ×2 (00:08→08:37)
[2024-07-14] MEDS: DILAUDID 0.5 MG IV ×5 (00:09→17:18)
--- NOTE | 2024-07-14 01:57 | W.PN.CT ---
Today's Communication / Plan
-
Plan:
-No major issues overnight. Hemodynamically and neurologically intact
-Pt successfully extubated @ PACU
-Noted to be hypertensive postop, resolved
-Left chest tube currently on water seal without air leak. Drained 150/280 in 12/24hrs
-AM cxr without visible ptx on my review. F/u official report
-Cont. current meds (SC heparin, Prograf, Mycophenolate Sodium, Lopressor, Novolog, Lantus)
-D/C'd A-line @ 0600
-U/O since OR 800 mL. Not on HD. Noted to be hyperkalemic this AM, 5.8, gave Ana, will check labs @ 10:30 AM
-Wean off of O2 as tolerated
-Encourage use of IS
-OOB into chair/Ambulate
-F/U pathology
Assessment / Plan
-
Assessment:
-S/P Robotic Assisted Thoracic Surgery (RATS), Left Upper Lobectomy/Radical Lymph Node dissection/Regional Block By Anesthesia, by Dr. Vargas, 07/13/23, pod#1
-Pulmonary Carcinoid
-Type 2 Diabetes (A1C 11)
-HTN
-Class 1 obesity (BMI 31)
-ESRD, requiring HD/L fistula (2019)
-Renal Transplant, on chronic immunosuppression
-H/o arrythmias, SVT
-Morbidly Obese
-Active Tobacco Abuse
-S/p Left shoulder rotator cuff repair
-S/p umbilical herniorrhaphy
-Acute postop hyponatremia, 133
-Acute postop hyperkalemia, 5.8
Discussed patient care with: Cardiology, Nursing, Respiratory Therapy, Pharmacy and Care Team
Subjective
Procedure
S/P Robotic Assisted Thoracic Surgery (RATS), Left Upper Lobectomy/Radical Lymph Node dissection/Regional Block By Anesthesia, by Dr. Vargas, 01/13/24
-
Date of Service: July 14, 2024
Pt c/o incisional pain, otherwise feels well
Objective Data
-
PT 12.3 Sec (11.4-14.6) 07/07/24 08:37
INR 0.89 07/07/24 08:37
APTT 26.9 Sec (23.4-35.0) 07/07/24 08:37
Vital Signs
Vital Signs
Temp Pulse Resp BP Pulse Ox
98.6 F 64 11 113/71 96
07/14/24 00:00 07/14/24 01:00 07/14/24 01:00 07/14/24 01:00 07/14/24 01:00
CT Intake/Output/Weight
07/13/24 07/13/24 07/14/24
06:59 18:59 06:59
Intake Total 1300 / 1400 100 / 1400
Output Total 430 / 780 350 / 780
Balance 870 / 620 -250 / 620
SaO2: 96 (RA)
Physical Exam
-
General: Awake, Oriented and AOx3
Cardiovascular: Regular rate & rhythm, No Murmurs and No Gallop
Respiratory: Decreased Breath Sounds (on left)
Incision: Clean, Dry, Intact and Dressing Intact
Extremities: No Edema
Data Reviewed
-
Lab Results: Results Reviewed
Medications: Active Meds Reviewed
Chest X-Ray: Report Reviewed and Image Reviewed
ECG: Report Reviewed and Image Reviewed
--- NOTE | 2024-07-14 04:00 | PTCARENOTE ---
no acute changes in assessment, VSS. pt asleep. NSR on monitor, HR 60s. SBP 110s-120s. POX 95% on room air. minimal CT output overnight. all surgical sites stable.
[2024-07-14 04:36] LABS: Hematocrit 39.7 % (39.0-52.0); Hemoglobin 13.2 g/dL (13.0-18.0); Mean Corp Hgb Conc. 33.2 g/dL (33.0-37.0); Mean Corpuscular Hgb 30.2 pg (27.0-31.0); Mean Corpuscular Volume 90.8 fL (80.0-94.0); Mean Platelet Volume 11.2 fL (7.4-10.4); Platelet Count 152 10^3/uL (130-400); Red Blood Cell Count 4.37 10^6/uL (4.70-6.10); Red Cell Dist. Width 12.6 % (11.5-14.5); White Blood Cell Count 9.6 10^3/uL (4.8-10.8)
[2024-07-14 04:53] LABS: Blood Urea Nitrogen 28 mg/dl (9-20); Calcium 10.2 mg/dl (8.4-10.2); Carbon Dioxide 19 mmol/L (22-30); Chloride 100 mmol/L (98-107); Estimated Creatinine Clearance 65 ml/min; Glucose 253 mg/dl (70-99); Magnesium 1.6 mg/dl (1.6-2.3); Potassium 5.8 mmol/L (3.5-5.1); Sodium 133 mmol/L (135-145); eGFR > 60.00
[2024-07-14] MEDS: TYLENOL 650 MG PO (04:58)
[2024-07-14] MEDS: FLEXERIL 10 MG PO ×2 (04:59→10:54)
--- NOTE | 2024-07-14 05:30 | PTCARENOTE ---
pt having extreme pain despite PRN dilaudid. CT PA aware. orders received for additional 0.5mg dilaudid IV now. pt assisted OOB to chair. AM labs drawn and sent.
[2024-07-14] MEDS: NOVOLOG FLEXPEN 18 UNITS SC ×3 (07:15→17:28)
--- NOTE | 2024-07-14 07:42 | W.PN.INTV ---
Today's Communication / Plan
Recommendations
Monitor chest tube output
DDAVP provided
Begin to deline
Pathology pending
Assessment
-
53-year-old former smoking male recently diagnosed with a solitary left upper lobe pulmonary nodule 2 cm and underwent robotic bronchoscopy noted to have lung cancer and underwent robotic assisted thoracic surgery with left upper lobectomy and lymph
node dissection-Dr. Vargas-07/13/2024-concrete engineering technician consulted for postoperative critical care management 07/13/2024.
Lung cancer-carcinoid tumor-stage I
Enlarging pulmonary nodule-1.5 cm up to 1.9 cm 05/2024
Status post robotic bronchoscopy 06/01/2024-positive for carcinoid tumor
Status post robotic assisted thoracic surgery with left upper lobectomy and lymph node dissection-Dr. Vargas-07/13/2024
[id number]
ANALI suspected
Conditions present prior to admission:
Hypertension.
Hyperlipidemia.
ESRD/hemodialysis.
Atrial fibrillation/flutter.
Diabetes.
Obesity-BMI 31
Right foot surgery. Umbilical herniography with mesh. AV fistula. Kidney transplant 2019.
Plan
Radiographs, bronchoscopy results, pathology all summarized below
Stable postoperatively in the cardiovascular intensive care unit
Supplemental oxygen as needed
Incentive spirometry encouraged
Aspiration precautions
Nebulizers if needed-currently not bronchospastic
Operative records reviewed
Chest tubes per surgery-monitor output-initially on waterseal-now on wall suction with some bloody drainage
DDAVP provided
Follow hemoglobin
Transfuse if needed
Monitor renal function
Immunosuppressive medications for renal transplantation-follows with Dr. Torres
Lokelma provided for hyperkalemia
Monitor for arrhythmias-has a history of paroxysmal atrial fibrillation
Monitor blood sugar
Insulin drip or supplementation as needed
Needs much better outpatient diabetes control-A1c 11%
DVT prophylaxis-subcu heparin
Nutrition
Early mobilization
Outpatient pulmonary/sleep disorders [id number] appointment 12 noon 08/25/[address] Parekh-eventual repeat PFTs-would evaluate for sleep apnea as well
Reviewed the patient's pertinent medical records including radiographs, microbiology, laboratory evaluations, and discussion with primary team, consultants, pharmacy, nutrition, physical therapy, case management, charge nurse, critical care
nursing, and respiratory therapy.
Diagnostic data:
Chest x-ray 07/22/18-possible mild right lower lobe pneumonia, improved.
CT chest 07/22/18-no evidence for pulmonary embolism, moderate groundglass opacifications in both lower lobes concerning for developing pneumonia versus interstitial lung disease, stable circumscribed noncalcified pulmonary nodule left upper lobe
approximately 1.5 cm, slightly progressed.� Probable parenchymal scarringChest x-ray 12/14/22-NAD, no focal consolidation
CT chest 04/20/24-no evidence for pulmonary embolism, 1.9 cm nodule left upper lobe with lobulated margins increased in size compared to 07/2018.
PET scan 06/22/24-2 cm left upper lobe carcinoid tumor is added measuring 3.1 SUV, no evidence for metastatic disease
6 minute walk test 05/05/24-ambulated 1200 feet with desaturation romy of 97% maximal heart rate 110.� Maximum dyspnea scale score 1.0.� No supplemental oxygen required�����
PFT 05/05/24-FEV1 3.09-95%, FVC 3.62-86%, TLC 84%, RV 70%, DLCO 104%, DLCO/ 115%.� Mild restriction.
Bronchoscopy 06/01/2024-left upper lobe brush consistent with carcinoid tumor, left upper lobe transbronchial needle aspiration consistent with carcinoid tumor, left upper lobe bronchoalveolar lavage negative for malignant cells
Bronchoscopy 06/01/2024-left upper lobe nodule biopsy well-differentiated neuroendocrine neoplasm compatible with carcinoid tumor
Subjective Dataa
Subjective Data
Date of Service:
Date of Service: July 14, 2024
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
Subjective:
Tolerated extubation, chest tube with significant blood, pain somewhat controlled, no complaints of shortness of breath or abdominal pain
Review of Systems
General: Other (Per HPI)
Objective Data
Data Reviewed
Vital Signs / I&O / Oxygen:
Vital Signs
Temp Pulse Resp BP Pulse Ox
98.5 F 73 20 140/94 96
07/14/24 03:00 07/14/24 05:00 07/14/24 05:00 07/14/24 05:00 07/14/24 06:40
Intake and Output
07/13/24 07/14/24 07/15/24
06:59 06:59 06:59
Intake Total 1400 / 1400
Output Total 1090 / 1090
Balance 310 / 310
SaO2 96
Nasal Cannula flow liters per 2
minute
Physical Exam
General: Respiratory Distress (n) and Comfortable
HEENT: Normocephalic, Anicteric and Moist Mucous Membranes
Cardiovascular: Regular Rhythm
Respiratory: Wheeze (n), Crackles (Basilar), Rhonchi, Non-Labored Respirations, Accessory Resp Muscle Use and Stridor (n)
GI: Soft, Non Distended and Non Tender
Neurology: Awake, Alert and No Motor Deficits
Skin: Warm, Good Color, Cyanosis (n), Jaundice (n) and Rash (n)
Labs/Micro/Reports
Lab Data
07/14/24 04:09
[2024-07-14] MEDS: LOKELMA 10 GRAM PO (08:36)
[2024-07-14] MEDS: MIRALAX 17 GRAMS PO (08:37)
[2024-07-14] MEDS: SENOKOT 8.6 MG PO ×2 (08:38→20:51)
[2024-07-14] MEDS: DILAUDID 2 MG PO ×2 (08:38→20:49)
[2024-07-14] MEDS: TYLENOL 1000 MG PO ×3 (08:39→23:08)
[2024-07-14] MEDS: PROTONIX 40 MG PO (08:39)
[2024-07-14] MEDS: LOPRESSOR 75 MG PO ×2 (08:40→22:48)
[2024-07-14] MEDS: MYFORTIC DELAYED REL. 360 MG PO ×2 (08:40→20:51)
[2024-07-14] MEDS: PROGRAF 2 MG PO (08:41)
[2024-07-14] MEDS: LIDOCAINE 4% PATCH 1 PATCH TOPICAL (08:42)
[2024-07-14] MEDS: HEPARIN SC (08:42)
[2024-07-14] MEDS: DDAVP 56.25 MCG IV (09:14)
[2024-07-14] MEDS: MYLICON 80 MG PO ×2 (09:14→15:07)
--- NOTE | 2024-07-14 10:28 | PTCARENOTE ---
2 pack plts ordered and infused without issue.
[2024-07-14 12:11] LABS: INR 1.07; PT 14.2 Sec (11.4-14.6)
[2024-07-14 12:12] LABS: APTT 19.4 Sec (23.4-35.0)
[2024-07-14 12:38] LABS: Glucose - Point of Care 254 mg/dl (70-99)
--- NOTE | 2024-07-14 14:22 | CM ---
Reviewed chart. Met with Mr. Garcia and his cousin to review discharge plans. He states he is having some pain/discomfort. His cousin gave h me his address where Mr. Garcia will be staying for one to two days. The address is [address] [place] [address],
[facility]. Prior to admission he resides alone in a one story mobile home with three steps to enter. Prior to admission he was independent with ambulation and adls He does not have any DME in the home. He has a prescription plan.
Medical work-up in progress. The discharge plan is to return home with his spouse and a home visit by the Transitional Care Nurse when medically stable.
[2024-07-14 16:15] LABS: Blood Urea Nitrogen 40 mg/dl (9-20); Calcium 10.6 mg/dl (8.4-10.2); Carbon Dioxide 21 mmol/L (22-30); Chloride 97 mmol/L (98-107); Estimated Creatinine Clearance 50 ml/min; Glucose 175 mg/dl (70-99); Potassium 5.5 mmol/L (3.5-5.1); Sodium 132 mmol/L (135-145); eGFR 48.21
[2024-07-14 17:29] LABS: Glucose - Point of Care 131 mg/dl (70-99)
[2024-07-14] MEDS: LR 1000 IV (20:50)
[2024-07-14 21:22] LABS: Glucose - Point of Care 78 mg/dl (70-99)
--- NOTE | 2024-07-14 22:00 | PTCARENOTE ---
Report received from HELLEN Sherman. Walking rounds done. Pt sitting in chair. Assessed at 2029. VS done. Pt awake, alert, oriented x 4. Speech clear. Moves all extremities equally. C/O L sided CP and L mid-back pain. Dilaudid 2 mg po given for severe
7/10 pain at 2048. BBS present. Decreased to B bases, more on L base. Rales present to B bases. L pleural CT to -20 cm suction. Red drainage. Outputs recorded. See wound assessments for surgical wounds. Audible heart tones. Pt in SR. Normotensive.
+2 palpable pulses to B radials and B DPs. +1 pedal edema present. Belly soft, nontender, Hypoactive bs x 4. Poor appetite. Voids clear, [place] urine in urinal: 350 mls. Positive thrill and bruit to L lower arm AV fistula site. Limb restriction
present. LR at 50 mls/hr started per order to R wrist IV. RAC IC d/c'ed due to discomforting pain with flush. Glucose at ~ 2100 was 78. 2 oz apple juice given. Repeat glucose at ~2200 was 95. Share with Fatou PETERSON. Dose of Lantus reduced to 15
units HS. Repeat glucose when giving Lantus was 105. Assiste back to bed at ~ 2099. CHG bath completed.
[2024-07-14] MEDS: PROGRAF 1 MG PO (22:48)
[2024-07-14 22:54] LABS: Glucose - Point of Care 95 mg/dl (70-99)
[2024-07-15] VITALS (14 sets, daily range): BP systolic 114–145; BP diastolic 75–94; BMI 31.7
[2024-07-15 01:05] LABS: Glucose - Point of Care 105 mg/dl (70-99)
[2024-07-15] MEDS: LANTUS 0.15 UNITS SC (01:05)
[2024-07-15] MEDS: DILAUDID 2 MG PO ×2 (03:17→13:32)
--- NOTE | 2024-07-15 04:00 | PTCARENOTE ---
Repeat Dilaudid 2 mg po given for 7/10 L sided back pain and mid-back pain. See MAR. Labs drawn and sent. Pt remains in SR. Sats on 1L/NC are 97-98%.
[2024-07-15 04:44] LABS: Hematocrit 35.9 % (39.0-52.0); Hemoglobin 11.7 g/dL (13.0-18.0); Mean Corp Hgb Conc. 32.6 g/dL (33.0-37.0); Mean Corpuscular Hgb 30.3 pg (27.0-31.0); Mean Platelet Volume 11.1 fL (7.4-10.4); Platelet Count 152 10^3/uL (130-400); Red Blood Cell Count 3.86 10^6/uL (4.70-6.10); Red Cell Dist. Width 12.8 % (11.5-14.5); White Blood Cell Count 11.2 10^3/uL (4.8-10.8)
[2024-07-15 05:12] LABS: Blood Urea Nitrogen 41 mg/dl (9-20); Calcium 10.2 mg/dl (8.4-10.2); Carbon Dioxide 26 mmol/L (22-30); Chloride 97 mmol/L (98-107); Estimated Creatinine Clearance 56 ml/min; Glucose 153 mg/dl (70-99); Potassium 4.7 mmol/L (3.5-5.1); Sodium 133 mmol/L (135-145); eGFR 56.02
[2024-07-15] MEDS: FLEXERIL 10 MG PO (06:34)
--- NOTE | 2024-07-15 06:38 | PTCARENOTE ---
Pt helped up to standing, weighed on on standing scale and helped to recliner chair. Flexeril 10 mg po given for L back and shoulder pain.
--- NOTE | 2024-07-15 07:33 | W.PN.INTV ---
Today's Communication / Plan
Recommendations
Wean oxygen
Pain control
Monitor chest tube output
Chest tubes likely discontinued
Monitor renal function
Pulmonary will sign off-please call with questions
Assessment
-
53-year-old former smoking male recently diagnosed with a solitary left upper lobe pulmonary nodule 2 cm and underwent robotic bronchoscopy noted to have lung cancer and underwent robotic assisted thoracic surgery with left upper lobectomy and lymph
node dissection-Dr. Vargas-07/13/2024-log marker consulted for postoperative critical care management 07/13/2024.
Lung cancer-carcinoid tumor-stage I
Enlarging pulmonary nodule-1.5 cm up to 1.9 cm 05/2024
Status post robotic bronchoscopy 06/01/2024-positive for carcinoid tumor
Status post robotic assisted thoracic surgery with left upper lobectomy and lymph node dissection-Dr. Vargas-07/13/2024
[id number]
ANALI suspected
Conditions present prior to admission:
Hypertension.
Hyperlipidemia.
ESRD/hemodialysis.
Atrial fibrillation/flutter.
Diabetes.
Obesity-BMI 31
Right foot surgery. Umbilical herniography with mesh. AV fistula. Kidney transplant 2019.
Plan
Radiographs, bronchoscopy results, pathology all summarized below
Stable postoperatively in the cardiovascular intensive care unit
Supplemental oxygen as needed-currently on room air
Incentive spirometry encouraged
Aspiration precautions
Nebulizers if needed-currently not bronchospastic
Operative records reviewed
Chest tubes per surgery-monitor output
Chest tubes will likely be pulled 07/15/2024
DDAVP provided
Await final pathology
Follow hemoglobin
Transfuse if needed
Monitor renal function
Immunosuppressive medications for renal transplantation-follows with Dr. Torres
Lokelma provided for hyperkalemia
Monitor for arrhythmias-has a history of paroxysmal atrial fibrillation
Monitor blood sugar
Insulin drip or supplementation as needed
Needs much better outpatient diabetes control-A1c 11%
DVT prophylaxis-subcu heparin
Nutrition
Early mobilization
Respiratory status stable-pulmonary will sign off-please call with questions
Outpatient pulmonary/sleep disorders [id number] appointment 12 noon 08/25/[address] Parekh-eventual repeat PFTs-would evaluate for sleep apnea as well
Reviewed the patient's pertinent medical records including radiographs, microbiology, laboratory evaluations, and discussion with primary team, consultants, pharmacy, nutrition, physical therapy, case management, charge nurse, critical care
nursing, and respiratory therapy.
Diagnostic data:
Chest x-ray 07/22/18-possible mild right lower lobe pneumonia, improved.
CT chest 07/22/18-no evidence for pulmonary embolism, moderate groundglass opacifications in both lower lobes concerning for developing pneumonia versus interstitial lung disease, stable circumscribed noncalcified pulmonary nodule left upper lobe
approximately 1.5 cm, slightly progressed.� Probable parenchymal scarringChest x-ray 12/14/22-NAD, no focal consolidation
CT chest 04/20/24-no evidence for pulmonary embolism, 1.9 cm nodule left upper lobe with lobulated margins increased in size compared to 07/2018.
PET scan 06/22/24-2 cm left upper lobe carcinoid tumor is added measuring 3.1 SUV, no evidence for metastatic disease
6 minute walk test 05/05/24-ambulated 1200 feet with desaturation romy of 97% maximal heart rate 110.� Maximum dyspnea scale score 1.0.� No supplemental oxygen required�����
PFT 05/05/24-FEV1 3.09-95%, FVC 3.62-86%, TLC 84%, RV 70%, DLCO 104%, DLCO/ 115%.� Mild restriction.
Bronchoscopy 06/01/2024-left upper lobe brush consistent with carcinoid tumor, left upper lobe transbronchial needle aspiration consistent with carcinoid tumor, left upper lobe bronchoalveolar lavage negative for malignant cells
Bronchoscopy 06/01/2024-left upper lobe nodule biopsy well-differentiated neuroendocrine neoplasm compatible with carcinoid tumor
Subjective Dataa
Subjective Data
Date of Service:
Date of Service: July 15, 2024
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
Subjective:
Chest tubes will be pulled, pain still an issue, no complaints of shortness of breath or abdominal pain
Review of Systems
General: Other (Per HPI)
Objective Data
Data Reviewed
Vital Signs / I&O / Oxygen:
Vital Signs
Temp Pulse Resp BP Pulse Ox
97.5 F 87 16 136/78 98
07/15/24 04:33 07/15/24 06:00 07/15/24 06:00 07/15/24 06:00 07/15/24 06:38
Intake and Output
07/14/24 07/15/24 07/16/24
06:59 06:59 06:59
Intake Total 1400 / 1400 1742 / 1742
Output Total 1090 / 1090 955 / 955
Balance 310 / 310 787 / 787
SaO2 98
Nasal Cannula flow liters per 1
minute
Physical Exam
General: Respiratory Distress (n) and Comfortable
HEENT: Normocephalic, Anicteric and Moist Mucous Membranes
Cardiovascular: Regular Rhythm
Respiratory: Wheeze (n), Crackles (Basilar), Rhonchi, Non-Labored Respirations, Accessory Resp Muscle Use and Stridor (n)
GI: Soft, Non Distended and Non Tender
Neurology: Awake, Alert and No Motor Deficits
Skin: Warm, Good Color, Cyanosis (n), Jaundice (n) and Rash (n)
Labs/Micro/Reports
Lab Data
07/15/24 04:27
07/15/24 04:27
Laboratory Results
07/14/24
11:31
PT 14.2
INR 1.07
APTT 19.4 L
--- NOTE | 2024-07-15 08:00 | PTCARENOTE ---
Received patient at 0700 from nightshift RN. Patient OOB in chair w/ call ariza in reach. Patient states pain is 7/10. VSS NSR BP 131/88 HR 80 POX 100% 2L NC. AOx4. Heart sounds audible. Lungs diminished bilaterally in bases and absent on left
lower lobe. Voiding [place] clear urine. No BM noted. Radial and pedal pulses present bilaterally. left lateral chest incisions well approximated and open to air. Left pleural chest tube set to -20 mmHg draining little serosanguineous drainage,
no air leak, tidaling, crepitus noted. Trace edema bilaterally on ankles. Right wrist PIV patent and intact. 50mL/hr of LR running into right wrist PIV.
[2024-07-15] MEDS: SENOKOT 8.6 MG PO ×2 (08:14→21:20)
[2024-07-15] MEDS: TYLENOL 1000 MG PO ×2 (08:14→15:41)
[2024-07-15] MEDS: LOPRESSOR 75 MG PO ×2 (08:14→21:19)
[2024-07-15] MEDS: MIRALAX 17 GRAMS PO (08:15)
[2024-07-15] MEDS: LIDOCAINE 4% PATCH 1 PATCH TOPICAL (08:16)
--- NOTE | 2024-07-15 08:18 | W.PN.CT ---
Today's Communication / Plan
-
-pod #2
-no issues overnight
-L pleur CT on -20 sxn, no air leak, put out 95/305 in 12/24 hrs
-CXR this am appears stable
-decreased Lantus last night d/t low BG, poor appetite
-Cr 1.5 today (peak 1.7 on 07/14, 1.1 preop)
-follow CXRs/CT
Assessment / Plan
-
Assessment:
-S/P Robotic Assisted Thoracic Surgery (RATS), Left Upper Lobectomy/Radical Lymph Node dissection/Regional Block By Anesthesia, by Dr. Vargas, 07/13/23, pod#2
-Pulmonary Carcinoid
-Type 2 Diabetes (A1C 11)
-HTN
-Class 1 obesity (BMI 31)
-ESRD, requiring HD/L fistula (2019)
-Renal Transplant, on chronic immunosuppression
-H/o arrythmias, SVT
-Morbidly Obese
-Active Tobacco Abuse
-S/p Left shoulder rotator cuff repair
-S/p umbilical herniorrhaphy
-Acute postop hyponatremia, 133
-Acute postop hyperkalemia, 5.8
-MEGAN with hx renal transplant
Discussed patient care with: Nursing and Care Team
Subjective
Procedure
S/P Robotic Assisted Thoracic Surgery (RATS), Left Upper Lobectomy/Radical Lymph Node dissection/Regional Block By Anesthesia, by Dr. Vargas, 07/13/23
-
Date of Service: July 15, 2024
Objective Data
-
Lab Results
07/15/24 04:27
07/15/24 04:27
PT 14.2 Sec (11.4-14.6) 07/14/24 11:31
INR 1.07 07/14/24 11:31
APTT 19.4 Sec (23.4-35.0) L 07/14/24 11:31
Vital Signs
Vital Signs
Temp Pulse Resp BP Pulse Ox
98.2 F 80 16 131/88 100
07/15/24 08:00 07/15/24 08:00 07/15/24 08:00 07/15/24 08:14 07/15/24 08:00
CT Intake/Output/Weight
07/14/24 07/15/24 07/15/24
18:59 06:59 18:59
Intake Total 1192 / 1742 550 / 1742 50 / 50
Output Total 210 / 955 745 / 955 330 / 330
Balance 982 / 787 -195 / 787 -280 / -280
SaO2: 100
Physical Exam
-
General: Awake, Oriented and AOx3
Cardiovascular: Regular rate & rhythm, No Murmurs and No Gallop
Respiratory: Decreased Breath Sounds (on left)
Incision: Clean, Dry, Intact and Dressing Intact
Extremities: No Edema
Data Reviewed
-
Lab Results: Results Reviewed
Medications: Active Meds Reviewed
Chest X-Ray: Report Reviewed and Image Reviewed
ECG: Report Reviewed and Image Reviewed
[2024-07-15] MEDS: PROTONIX 40 MG PO (08:28)
[2024-07-15] MEDS: MYFORTIC DELAYED REL. 360 MG PO ×2 (08:35→21:20)
--- NOTE | 2024-07-15 09:00 | PTCARENOTE ---
Left pleural chest tube D/C and pulled by CT WAREHOUSE WORKER Keke, dressing applied. Patient placed on RA POX 98%.
[2024-07-15] MEDS: PROGRAF 2 MG PO (09:01)
[2024-07-15 10:20] LABS: Glucose - Point of Care 194 mg/dl (70-99)
[2024-07-15] MEDS: NOVOLOG FLEXPEN SC (10:37)
--- NOTE | 2024-07-15 11:59 | PTCARENOTE ---
Assessment unchanged. Patient OOB in chair with call ariza in reach. Patient stated pain is now 07/10. VSS NSR BP 137/91 HR 84 POX 97% RA. Deep breathing and IS encouraged. Patient coughing up phlegm. Patient 1 assist when ambulating to
bathroom, voiding clear yellow urine. No BM noted.
--- NOTE | 2024-07-15 12:28 | CM ---
Reviewed chart. Met with Mr. Garcia and his cousin to review discharge plans. He states he is very tired today. Prior to admission he resides lone in a mobile home with three steps to enter. He states he is planning on staying one to two days at
his cousin home at [address] [place] [address]. He resides in the [facility]. Prior to admission he was independent with ambulation and adls. He does not have any DME in the home. He has a prescription plan. Medical
work-up in progress. The discharge plan is to go to home to his cousin's home with a home visit by the Transitional Care Nurse when medically stable.
--- NOTE | 2024-07-15 12:40 | PTCARENOTE ---
Spoke to lab concerning Tacrolimus level order saying 'cancelled'. Per lab, specimen was sent to a local lab and is still being processed even though the order says 'cancelled'. Per lab, we do not need to draw a new specimen since the first specimen
was still being run.
[2024-07-15] MEDS: NOVOLOG FLEXPEN 18 UNITS SC ×2 (12:59→17:30)
[2024-07-15 13:02] LABS: Glucose - Point of Care 218 mg/dl (70-99)
[2024-07-15] MEDS: LOPRESSOR 5 MG IV (14:01)
--- NOTE | 2024-07-15 14:52 | PTCARENOTE ---
Patient received from Taylor RN at 1315; AAOx4, responds spontaneously to RN and follows commands; Drowsy, flat affect; VSS; Afib with RVR on monitor as of 1317 - converted to NSR at 1408 after receiving IV Lopressor 5 mg; Shallow RR; SpO2 93-96%
on RA; Trace B/L Pedal edema; +2 DP and radial pulses; Poor appetite; Hypoactive BS; Urinating in bathroom; PIVx1 #18 right wrist; See nursing documentation for further details.
[2024-07-15] MEDS: HEPARIN 5000 UNITS SC (15:41)
--- NOTE | 2024-07-15 16:30 | PTCARENOTE ---
NSR on monitor; VSS; Patient resting comfortably in chair
[2024-07-15 16:53] LABS: Glucose - Point of Care 183 mg/dl (70-99)
[2024-07-15] MEDS: DILAUDID 0.5 MG IV (18:36)
[2024-07-15] MEDS: REGLAN 10 MG IV (20:24)
[2024-07-15] MEDS: MYLICON 160 MG PO (21:20)
[2024-07-15] MEDS: PROGRAF 1 MG PO (21:21)
--- NOTE | 2024-07-15 22:00 | PTCARENOTE ---
Assumed care of pt from bety RN. Pt AAOx3. Following commands appropriately. SR on the tele monitor. HR 80s. BP stable. Palpable pulses throughout. Trace B/L LE edema. Lung sounds diminished throughout. POX 95% on RA. Deep breathing and IS
encouraged. Pt having nausea and some vomiting. CTPA at bedside. Reglan and simethicone ordered and administered - See AUG. Labs drawn and sent. Abdomen slightly distended. +BS x4. Pt states he feels relief from nausea and bloating. Pt voiding
yellow urine in urinal w/o issue. Left lateral puncture and incision sites intact. Left pleural CT dressing C/D/I. Right forearm PIV C/D/I. See worklist for full nursing assessment and interventions. Call ariza within reach and pt ringing
appropriately.
[2024-07-15 22:09] LABS: Glucose - Point of Care 102 mg/dl (70-99)
[2024-07-15 22:10] LABS: Blood Urea Nitrogen 34 mg/dl (9-20); Calcium 10.5 mg/dl (8.4-10.2); Carbon Dioxide 26 mmol/L (22-30); Chloride 97 mmol/L (98-107); Estimated Creatinine Clearance 66 ml/min; Glucose 105 mg/dl (70-99); Potassium 4.4 mmol/L (3.5-5.1); Sodium 132 mmol/L (135-145); eGFR > 60.00
[2024-07-15] MEDS: LANTUS SC (23:03)
[2024-07-16] VITALS (11 sets, daily range): BP systolic 80–140; BP diastolic 64–96; BMI 31.4
[2024-07-16] MEDS: TYLENOL 1000 MG PO ×4 (00:35→23:15)
[2024-07-16] MEDS: LOPRESSOR 5 MG IV ×2 (00:35→14:33)
[2024-07-16] MEDS: HEPARIN 5000 UNITS SC ×4 (00:35→23:15)
--- NOTE | 2024-07-16 00:50 | PTCARENOTE ---
Pt into afib ~0022. CTPA notified. HR 100s-120s. BP 140/96. Pt denies headache/dizziness/Chest pain. POX 94% on RA. 5 mg IV Lopressor administered as ordered.
[2024-07-16] MEDS: LOPRESSOR 75 MG PO ×2 (04:34→20:39)
--- NOTE | 2024-07-16 04:37 | W.PN.CT ---
Today's Communication / Plan
-
-pod #3
-1 episode of nausea and dry heaves last night- better with Reglan and Simethicone. Dilated bowels on CXR - started tid Reglan
-in and out of a-fib 110s-120s- sleeping, asymptomatic. Converted once after getting iv Lopressor overnight (similar episode yesterday).
From about 4 am pt has been in and out of a-fib. Gave po Lopressor at 4:30 am
-CT has been dcd
-follow CXR
-Cr 1.1 today (1.3-1.7 postop and 1.1 preop) (hx renal transplant 2019)
-sq Heparin for DVT prophylaxis
-encourage IS, OOB, ambulate
Assessment / Plan
-
Assessment:
-S/P Robotic Assisted Thoracic Surgery (RATS), Left Upper Lobectomy/Radical Lymph Node dissection/Regional Block By Anesthesia, by Dr. Vargas, 07/13/23, pod#3
-Pulmonary Carcinoid
-Type 2 Diabetes (A1C 11)
-HTN
-Class 1 obesity (BMI 31)
-ESRD, requiring HD/L fistula (2019)
-Renal Transplant, on chronic immunosuppression
-H/o arrythmias, SVT/ A-fib
-Morbidly Obese
-Active Tobacco Abuse
-S/p Left shoulder rotator cuff repair
-S/p umbilical herniorrhaphy
-Acute postop hyponatremia, 133
-Acute postop hyperkalemia, 5.8
-MEGAN with hx renal transplant
-A-fib postop 110s-120s
Discussed patient care with: Nursing and Care Team
Subjective
Procedure
S/P Robotic Assisted Thoracic Surgery (RATS), Left Upper Lobectomy/Radical Lymph Node dissection/Regional Block By Anesthesia, by Dr. Vargas, 07/13/23
-
Date of Service: July 16, 2024
Objective Data
-
PT 14.2 Sec (11.4-14.6) 07/14/24 11:31
INR 1.07 07/14/24 11:31
APTT 19.4 Sec (23.4-35.0) L 07/14/24 11:31
Vital Signs
Vital Signs
Temp Pulse Resp BP Pulse Ox
97.9 F 118 20 129/64 96
07/16/24 04:33 07/16/24 04:33 07/16/24 04:33 07/16/24 04:33 07/16/24 04:33
CT Intake/Output/Weight
07/15/24 07/15/24 07/16/24
06:59 18:59 06:59
Intake Total 550 / 1742 170 / 170
Output Total 745 / 955 330 / 730 400 / 730
Balance -195 / 787 -160 / -560 -400 / -560
SaO2: 96
Physical Exam
-
General: Awake
Cardiovascular: Regular rate & rhythm, No Murmurs and No Rub
Respiratory: Decreased Breath Sounds
Incision: Clean, Dry and Dressing Intact
Extremities: No Edema
Abdomen: soft, mildly distended, + bowel sounds
Data Reviewed
-
Lab Results: Results Reviewed
Medications: Active Meds Reviewed
Chest X-Ray: Report Reviewed and Image Reviewed
ECG: Report Reviewed and Image Reviewed
--- NOTE | 2024-07-16 04:45 | PTCARENOTE ---
Pt between a-fib and sinus on the tele monitor. HR 80s when in sinus and then 100-120s when in a-fib. Per CTPA give AM dose of Lopressor now - see MAR. Pt denies chest pain or dizziness. BP 128/64. Pt is 96% on RA. Labs drawn and sent. Pt
repositioned in bed. Call ariza within reach.
[2024-07-16 05:03] LABS: Hematocrit 32.9 % (39.0-52.0); Mean Corp Hgb Conc. 33.4 g/dL (33.0-37.0); Mean Corpuscular Hgb 30.4 pg (27.0-31.0); Mean Corpuscular Volume 90.9 fL (80.0-94.0); Mean Platelet Volume 11.1 fL (7.4-10.4); Platelet Count 149 10^3/uL (130-400); Red Blood Cell Count 3.62 10^6/uL (4.70-6.10); Red Cell Dist. Width 12.4 % (11.5-14.5); White Blood Cell Count 8.5 10^3/uL (4.8-10.8)
[2024-07-16 05:28] LABS: Blood Urea Nitrogen 30 mg/dl (9-20); Carbon Dioxide 21 mmol/L (22-30); Chloride 101 mmol/L (98-107); Estimated Creatinine Clearance 77 ml/min; Glucose 138 mg/dl (70-99); Potassium 4.5 mmol/L (3.5-5.1); Sodium 134 mmol/L (135-145); eGFR > 60.00
[2024-07-16] MEDS: NOVOLOG FLEXPEN 18 UNITS SC ×3 (07:03→17:46)
--- NOTE | 2024-07-16 08:00 | PTCARENOTE ---
Resumed care of pt from prev RN. AAOx3. AFIB on the monitor. HR 90s-120s. VSS. + pulses. Trace edema. 96% on RA. Lungs diminished and shallow. IS 500-750. Abdomen round distended. +BS.voiding tea colored urine in urinal. All surgical sites C/D/I.
will continue to monitor.
[2024-07-16] MEDS: LIDOCAINE 4% PATCH 1 PATCH TOPICAL (09:04)
[2024-07-16] MEDS: MIRALAX 17 GRAMS PO (09:04)
[2024-07-16] MEDS: MYFORTIC DELAYED REL. 360 MG PO ×2 (09:07→20:39)
[2024-07-16] MEDS: PROTONIX 40 MG PO (09:08)
[2024-07-16] MEDS: PROGRAF 2 MG PO (09:08)
[2024-07-16] MEDS: REGLAN 10 MG PO ×3 (09:09→21:25)
[2024-07-16] MEDS: LOPRESSOR 25 MG PO (09:10)
[2024-07-16] MEDS: SENOKOT 8.6 MG PO ×2 (09:10→20:39)
[2024-07-16] MEDS: CORDARONE 103 MG IV (10:44)
--- NOTE | 2024-07-16 11:06 | PTCARENOTE ---
amio bolus ordered and hung. Pt remains in AFIB at this time.
[2024-07-16] MEDS: PACERONE 400 MG PO ×2 (11:10→20:39)
[2024-07-16] MEDS: REGLAN PO (13:33)
--- NOTE | 2024-07-16 14:22 | CON.CAR ---
Addendum entered and electronically signed by Soraya Schwartz DO 07/16/24 19:08:
I saw and examined the patient.
The Surplus Property Disposal Agent's note was reviewed and I agree with the note.
Comment: Patient was seen and examined in CVICU 2262 with cardiac PA for post op rapid atrial fibrillation. Patient came to for elective robotic assisted thoracic left upper lobectomy and radical lymph node resection for carcinoid on 07/13/23.
Patient with breakthroughs of Afib starting 07/15/24 and again today. Patient denies palpitations. Patient with a h/o paroxysmal Afib and flutter that was diagnosed in 2017 and was started on Eliquis. Last known occurrence of Afib was in 2022 and at
that time patient's dose of Lopressor was cancelled and amiodarone gtt was started, but then stopped due to interaction with tacrolimus. Patient was also d/c'd to home on Eliquis. Patient was last seen in the [facility] office 09/18/22 and was taking
Eliquis at that time. Then at PCP office visit 10/16/23 the patient told his PCP he had started using cocaine and had stopped taking Eliquis for an unclear reason. Patient then had a CT chest that showed enlarging pulmonary nodule and was diagnosed
with carcinoid and referred to CT surgery for resection. Patient then had cardiac clearance with Dr. Domingo on 05/18/24 (visit was unknown at the time of this consultation ) and had lobectomy 07/13/24.
General: No acute distress lying supine, AAOX3, on RA
Heart: Irregularly irregular, positive S1/S2, no murmur
Lungs: Bronchovesicular breath sounds, decreased bilaterally. No wheezes or rhonchi. Chest tubes discontinued earlier today
Abd: Positive BS, NT/ND, neg rebound/rigidity/guarding
Ext: No edema
Neuro: nonfocal
Plan:
Pulmonary carcinoid
-S/P Robotic Assisted Thoracic Surgery (RATS), Left Upper Lobectomy/Radical Lymph Node dissection/Regional Block By Anesthesia, by Dr. Vargas, 07/13/23
-Chest tubes discontinued
-I-S
-Postop care per CT surgery
History of atrial fibrillation/flutter with recurrent postop atrial fibrillation
-Continue amiodarone load with both IV and oral initiated by CT surgery
-Continue Lopressor 75 mg twice daily
-Check TSH
-Twelve-lead EKG ordered
-Will consider checking 2D echocardiogram if not recently done (will defer to [facility])
-Monitor tacrolimus closely while on amiodarone given known interaction
-Patient was not on OAC prior to admission, looks like he stopped Eliquis on his own sometime between 09/18/22 and 10/16/23. [id number] is 2 so patient should restart OAC when safe from a surgical standpoint.
History of donor renal transplant 05/10/2020
Patient had recent outpatient consult with [facility], Dr. Domingo which was not notified at the time of this consultation
Contacted [facility] cardiology and will transfer care 07/17/2024
Original Note:
Consultation
Consultation Request
Date/Time Consultation Requested: 07/16/24
Date/Time Consultation Performed: 07/16/24
Requesting Provider: Dr. Vargas
Performing Provider: Dr. Schwartz
Reason for Consultation: Recurrent Afib with RVR
Medical History
-
History of Present Illness:
Patient came to for elective robotic assisted thoracic left upper lobectomy and radical lymph node resection for carcinoid on 07/13/23. Patient with breakthroughs of Afib starting 07/15/24 and again today. Patient denies palpitations. Patient with
a h/o paroxysmal Afib and flutter that was diagnosed in 2017 and was started on Eliquis. Last known occurrence of Afib was in 2022 and at that time patient's dose of Lopressor was cancelled and amiodarone gtt was started, but then stopped due to
interaction with tacrolimus. Patient was also d/c'd to home on Eliquis. Patient was last seen in the [facility] office 09/18/22 and was taking Eliquis at that time. Then at PCP office visit 10/16/23 the patient told his PCP he had started using cocaine and
had stopped taking Eliquis for an unclear reason. Patient then had a CT chest that showed enlarging pulmonary nodule and was diagnosed with carcinoid and referred to CT surgery for resection. Patient then had cardiac clearance with Dr. Domingo from
the other cardiology group on 05/18/24 and had lobectomy 07/13/24. Cardiology is now consulted for recurrence of Afib.
PMH:
Paroxysmal typical atrial flutter diagnosed in 2018
Chronic Eliquis OAC
s/p donor renal transplant at [facility] 05/10/20
DM 2
Hypertension
Anemia
Secondary hyperparathyroidism
Hyperlipidemia
Past Medical History
Past Medical History: Other (in HPI)
Past Surgical History: Other (renal transplant 05/10/20)
Social History
Tobacco: Non-Smoker
Alcohol: Other (about once a month)
Drug: Cocaine (cocaine use 09/2023 and now stopped)
Personal:
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
Family History
Family History: Diabetes and Other (CKD)
Allergies / Home Medications
Allergy/AdvReac Type Severity Reaction Status Date / Time
shellfish derived Allergy Rash Verified 07/03/24 09:14
vancomycin Allergy feeling of Verified 07/03/24 09:14
body 'hot'
and some
'itching'
�Medication �Instructions �Recorded �Confirmed �Type
pantoprazole 40 mg tablet,delayed 40 mg PO DAILY Gastrointestinal 12/28/21 07/13/24 History
release Issue
tacrolimus 0.5 mg capsule, 1 mg PO HS kidney transplant 12/28/21 07/13/24 History
immediate-release
mycophenolate sodium 180 mg 360 mg PO BID Autoimmune Disorder 09/14/22 07/13/24 History
tablet,delayed release
sildenafil 50 mg tablet 50 mg PO DAILYPRN PRN ed 09/14/22 07/03/24 History
blood sugar diagnostic (Contour #200 ea 12/17/22 07/03/24 Rx
Next Test Strips)
lancets 21 gauge (Color Lancets) #200 ea 12/17/22 07/03/24 Rx
pen needle, diabetic 32 gauge x #1,200 ea 12/17/22 07/03/24 Rx
5/32' (BD Ultra-Fine Kellee Pen
Needle)
pen needle, diabetic 32 gauge x #200 ea 12/20/22 07/03/24 Rx
5/32' (BD Ultra-Fine Kellee Pen
Needle)
insulin aspart U-100 100 unit/mL 18 unit SC AC Diabetes 04/19/24 07/13/24 History
(3 mL) subcutaneous pen (Novolog
FlexPen U-100 Insulin aspart)
insulin glargine 100 unit/mL (3 37 unit SC HS Diabetes 04/19/24 07/13/24 History
mL) subcutaneous pen (Lantus
Solostar U-100 Insulin)
meclizine 25 mg tablet 25 mg PO QID PRN dizziness, nausea 04/20/24 07/03/24 Rx
#20 tabs
metoprolol tartrate 75 mg tablet 75 mg PO BID Heart 05/29/24 07/13/24 History
Disease/Condition
tacrolimus 0.5 mg capsule, 2 mg PO DAILY kidney transplant 05/29/24 07/13/24 History
immediate-release
Review of Systems
-
History Source: Patient
All other systems: Negative unless noted
Physical Exam
Vital Signs
Temp Pulse Resp BP Pulse Ox
98.3 F 99 18 98/73 96
07/16/24 08:00 07/16/24 13:30 07/16/24 08:00 07/16/24 11:11 07/16/24 09:06
GEN: NAD. AAOx3
HEENT: EOMI, MMM
LUNGS: RA. Coarse BS without wheeze B/L
CV: Afib on tele. Irreg irreg, S1/S2, no murmur
ABD: soft, BS+, NT, ND
EXT: No clubbing, cyanosis, lesions or edema B/L
NEURO: Gross non-focal
SKIN: Warm, dry and pink. No rash
Lab Results
07/16/24 04:42
07/16/24 04:42
Impression / Plan
-
PCP: Dr. Manley
Primary industrial chemicals supervisor: Dr. Gill
Impression:
s/p robotic assisted left upper lobectomy and radical lymph node resection 07/13/24
Afib with RVR
Paroxysmal typical atrial flutter diagnosed in 2017
Chronic Eliquis OAC
s/p donor renal transplant at [facility] 05/10/20
DM 2
Hypertension
Anemia
Secondary hyperparathyroidism
Hyperlipidemia
Lexiscan mibi December 2016: EF 50%, small fixed inferoapical defect, no ischemia
Echo December 2016: Mild LVH, EF 50-55%, normal RV normal atria, trace MR, aortic sclerosis without stenosis or insufficiency, trace TR
Plan:
-Patient came to for elective robotic assisted thoracic left upper lobectomy and radical lymph node resection for carcinoid on 07/13/23. Patient with breakthroughs of Afib starting 07/15/24 and again today. Patient denies palpitations. Patient with
a h/o paroxysmal Afib and flutter that was diagnosed in 2017 and was started on Eliquis. Last known occurrence of Afib was in 2022 and at that time patient's dose of Lopressor was cancelled and amiodarone gtt was started, but then stopped due to
interaction with tacrolimus. Patient was also d/c'd to home on Eliquis. Patient was last seen in the [facility] office 09/18/22 and was taking Eliquis at that time. Then at PCP office visit 10/16/23 the patient told his PCP he had started using cocaine and
had stopped taking Eliquis for an unclear reason. Patient then had a CT chest that showed enlarging pulmonary nodule and was diagnosed with carcinoid and referred to CT surgery for resection. Patient then had cardiac clearance with Dr. Domingo from
the other cardiology group on 05/18/24 and had lobectomy 07/13/24. Cardiology is now consulted for recurrence of Afib.
-ECG from 07/07/24 reviewed by me and is SR with LVH and repolarization abnormality. Tele reviewed by me and looks like Afib, but occasionally 4-5 beats of SR.
-Check ECG now and again in AM to follow QTc
-Agree with amiodarone gtt started by CT surgery team.
-Also started on amiodarone 200 mg PO BID.
-There is an interaction between tacrolimus and amiodarone. Recommend monitoring tacrolimus levels.
-Outpatient dose of Lopressor 75 mg BID ordered as well.
-Patient was not on OAC prior to admission, looks like he stopped Eliquis on his own sometime between 09/18/22 and 10/16/23. [id number] is 2 so patient should restart OAC when safe from a surgical standpoint.
[2024-07-16 14:24] LABS: Glucose - Point of Care 240 mg/dl (70-99)
[2024-07-16] MEDS: CORDARONE 518 MG IV (14:27)
--- NOTE | 2024-07-16 15:03 | CM ---
Reviewed chart. Met with Mr. Garcia to review discharge plans. He states he is feeling better. He states he is still planning on staying with his cousin for a one to two days before returning to his home. We reviewed a home visit by the
Transitional Care Nurse. He is agreeable to a home visit. He states he has been walking to the bathroom. Medical work-up in progress. The discharge plan is to go to his cousins home for one to two days with a home visit by the Transitional Care
Nurse when medically stable.
--- NOTE | 2024-07-16 16:19 | W.CHA2DS2VAS ---
[id number] Score
Score
Age in Years (65=0, 65-74=1, >/=75=2): <65
Sex (Female=+1): Male
Congestive Heart Failure History (Yes=+1): No
Hypertension History (Yes=+1): Yes
Stroke/TIA/Thromboembolism History (Yes=+2): No
Vascular Disease History (Yes=+1): No
Diabetes Mellitus (Yes=+1): Yes
Score >/=2 is otherwise an anticoagulation candidate: 2
[2024-07-16 17:47] LABS: Glucose - Point of Care 256 mg/dl (70-99)
--- NOTE | 2024-07-16 20:00 | PTCARENOTE ---
Patient received sitting in the chair, AAOx3. NSR on monitor, blood pressure as documented. Weak but palpable pedal pulses. Lungs diminished, pulse ox 95% on room air. Abdomen round, hypoactive bowel sounds, good appetite, +BM. Voiding. Left
chest incisional sites approximated. #20 g in right forearm with Amio gtt infusing as ordered. Call ariza within reach
[2024-07-16] MEDS: PROGRAF 1 MG PO (21:25)
[2024-07-16 22:03] LABS: Glucose - Point of Care 215 mg/dl (70-99)
[2024-07-16] MEDS: LANTUS 0.37 UNITS SC (22:03)
--- NOTE | 2024-07-17 | PTCARENOTE ---
Patient assisted back to bed, no changes in assessment
--- NOTE | 2024-07-17 04:00 | PTCARENOTE ---
Patient stand by assist to the bathroom, multiple attempts to draw labs by 2 RNs, offers no complaints. No other changes in assessment
[2024-07-17 04:05] VITALS: BP 115/73
[2024-07-17 05:31] LABS: Blood Urea Nitrogen 31 mg/dl (9-20); Calcium 9.8 mg/dl (8.4-10.2); Carbon Dioxide 21 mmol/L (22-30); Chloride 102 mmol/L (98-107); Estimated Creatinine Clearance 85 ml/min; Glucose 173 mg/dl (70-99); Potassium 4.4 mmol/L (3.5-5.1); Sodium 132 mmol/L (135-145); eGFR > 60.00
[2024-07-17 06:00] VITALS: BMI 30.9
--- NOTE | 2024-07-17 06:55 | W.PN.CT ---
Today's Communication / Plan
-
-pod #4
-doing well, no issues overnight, no further nausea, appetite improved
-drips: Amio
-remained in nsr overnight
-Cr stable 1.0
-sq Heparin for DVT prophylaxis
-encourage IS, OOB, ambulate
-possible d/c soon
Assessment / Plan
-
Assessment:
-S/P Robotic Assisted Thoracic Surgery (RATS), Left Upper Lobectomy/Radical Lymph Node dissection/Regional Block By Anesthesia, by Dr. Vargas, 07/13/23, pod#4
-Pulmonary Carcinoid
-Type 2 Diabetes (A1C 11)
-HTN
-Class 1 obesity (BMI 31)
-ESRD, requiring HD/L fistula (2019)
-Renal Transplant, on chronic immunosuppression
-H/o arrythmias, SVT/ A-fib
-Morbidly Obese
-Active Tobacco Abuse
-S/p Left shoulder rotator cuff repair
-S/p umbilical herniorrhaphy
-Acute postop hyponatremia, 133
-Acute postop hyperkalemia, 5.8
-MEGAN with hx renal transplant
-A-fib postop 110s-120s
Discussed patient care with: Nursing and Care Team
Subjective
Procedure
S/P Robotic Assisted Thoracic Surgery (RATS), Left Upper Lobectomy/Radical Lymph Node dissection/Regional Block By Anesthesia, by Dr. Vargas, 07/13/23
-
Date of Service: July 17, 2024
Objective Data
-
Lab Results
07/16/24 04:42
07/17/24 04:34
PT 14.2 Sec (11.4-14.6) 07/14/24 11:31
INR 1.07 07/14/24 11:31
APTT 19.4 Sec (23.4-35.0) L 07/14/24 11:31
Vital Signs
Vital Signs
Temp Pulse Resp BP Pulse Ox
98.3 F 67 18 115/73 97
07/17/24 04:00 07/17/24 04:30 07/16/24 08:00 07/17/24 04:05 07/17/24 00:00
CT Intake/Output/Weight
07/16/24 07/16/24 07/17/24
06:59 18:59 06:59
Intake Total 340 / 340
Output Total 400 / 730 350 / 350
Balance -400 / -560 -10 / -10
SaO2: 97
Physical Exam
-
General: Awake and AOx3
Cardiovascular: Regular rate & rhythm, No Murmurs and No Rub
Respiratory: Decreased Breath Sounds
Incision: Clean, Dry and Dressing Intact
Extremities: No Edema
Data Reviewed
-
Lab Results: Results Reviewed
Medications: Active Meds Reviewed
Chest X-Ray: Report Reviewed and Image Reviewed
ECG: Report Reviewed and Image Reviewed
[2024-07-17] MEDS: LIDOCAINE 4% PATCH 1 PATCH TOPICAL (07:51)
[2024-07-17] MEDS: PACERONE 400 MG PO (07:51)
[2024-07-17] MEDS: TYLENOL 1000 MG PO (07:52)
[2024-07-17 07:53] VITALS: BP 130/80
[2024-07-17] MEDS: LOPRESSOR 75 MG PO (07:54)
[2024-07-17] MEDS: PROGRAF 2 MG PO (07:55)
[2024-07-17] MEDS: PROTONIX 40 MG PO (07:55)
[2024-07-17] MEDS: MYFORTIC DELAYED REL. 360 MG PO (07:57)
[2024-07-17] MEDS: SENOKOT 8.6 MG PO (07:58)
[2024-07-17] MEDS: MIRALAX 17 GRAMS PO (07:59)
[2024-07-17] MEDS: REGLAN 10 MG PO (08:00)
[2024-07-17] MEDS: HEPARIN 5000 UNITS SC (08:00)
[2024-07-17 08:56] LABS: Glucose - Point of Care 184 mg/dl (70-99)
--- NOTE | 2024-07-17 09:27 | W.DCSUMMARY ---
Discharge Summary
Discharge Data
Date of Admission: 07/13/24
Date of Discharge: 07/17/24
-
Pending Results: Yes (tacrolimus level (07/17) as on Amiodarone, Surgical pathology)
Hospital Course
Primary care physician: Tita Resendez
Outpatient court specialist: Jesus Domingo
Outpatient Director Of Casework: Easton Parekh
Inpatient consultants: [facility] Cardiology, Pulmonary
Procedures:
1. Left upper lobe lobectomy
Primary Diagnosis:
1. Left Upper Lobe Carcinoid Tumor
Secondary Diagnoses:
1. Type 2 Diabetes (A1C 11)
3. HTN
4. Renal Failure, requiring DH
5. Right renal Transplant, on chronic immunosuppression
6. H/o arrythmias (PAF), SVT
7. Obesity (BMI 30.9)
8. Active Tobacco Abuse
HPI: 53-year-old male was electively admitted on 07/13/2024 for a left upper lobe lobectomy due to lung cancer.
Hospital course: Robotic Assisted Thoracic Surgery (RATS), Left Upper Lobectomy and radical Lymph Node dissection by Dr. Luis Alberto Vargas. Patient received regional block By Anesthesia. Patient extubated in the operating room and recovered in the
PACU. Left pleural chest tube was placed to water seal in PACU. Postoperative day #1, Dilaudid p.o. and IV were utilized for breakthrough pain. The chest tube drained 250 cc of serosanguineous drainage during the night and patient was given
DDAVP, 1 platelet and placed back on -20 cm of suction. Prophylactic subcutaneous Heparin was held. Drainage significantly decreased with chest tube output of 10 cc in 4 hours and repeat chest x-ray at 1800 report to no change. Simethicone was
given for postoperative gastric dilatation. On postoperative day #2, the left pleural chest tube was removed and the pain greatly improved. Prophylactic subcutaneous heparin was resumed. Patient developed brief atrial for relation of 5-minute
duration. Lopressor 5 mg IV was given and patient converted to sinus rhythm. A tacrolimus level was 8.2 which was within normal level. On postoperative day #3 patient converted into atrial fibrillation again. Lopressor is increased to 100 mg
twice daily. Amiodarone bolus and drip were initiated. Patient converted back to sinus rhythm at 5:45 PM. A Prograf level was drawn on 07/17/2024 due to amiodarone interaction with Prograf. This test is a send out and not resulted at time of
discharge. Patient remained stable in NSR, ambulating in hallways. Anticoagulation was not initiated per surgeon. Pain was controlled. Nephrology (covering Dr Joao Gerber) notified of current Amio treatment and need for more frequent
monitoring of tacrolimus levels. Patient instructed on need to follow-up with cardiology for reduction in amiodarone dosage within 3 weeks. Patient scheduled for patient was strongly advised to refrain from tobacco. The surgical pathology result
is also pending at the time of discharge.
Home medication changes:
New:
Amiodarone 200mg BID
Flexeril prn
Discharge Plan
-
Patient Disposition: Home (Routine Discharge)
Discharge Diagnosis/Procedures: REYNALDO lobectomy
Condition: Good
Diet: Diabetic, Carb Controlled
Activity: No strenuous activity
Driving Restrictions: No driving for 2 weeks
Bathing Restrictions: OK to Shower
Blood Work: tacrolimus level in 1 week as on Amiodarone for PAF
Specialty Instructions: Weigh Daily- Call MD for wt gain/loss 3 lbs overnight/5 lbs in 1 week
Referrals:
CT Transitional Care Nurse [Outside] - in one to two days
(
The Cardiothoracic Transitional Care Nurse will call you to set up a visit in 1-2 days.)
Tita Resendez PA-C [Family Provider] - in four to six weeks (Please make the appointment in four to six weeks. )
Jesus Domingo DO [Active] - (call for follow-up appointment for atrial fibrillation. On Amiodarone and tacrolimus)
Luis Alberto Vargas MD [Active] - 07/27/24 10:45 am
Prescriptions:
New
cyclobenzaprine 10 mg Tablet
10 mg PO Q8HPRN PRN (Reason: muscle pain) Qty: 20 0RF
amiodarone 200 mg tablet
200 mg PO BID Qty: 60 1RF
Continued
tacrolimus 0.5 MG capsule
1 mg PO HS
pantoprazole 40 MG tablet,delayed release (DR/EC)
40 mg PO DAILY
sildenafil 50 mg tablet
50 mg PO DAILYPRN PRN (Reason: ed)
mycophenolate sodium 180 mg tablet,delayed release (DR/EC)
360 mg PO BID
(DME) Contour Next Test Strips Strip
Qty: 200 0RF
Rx Instructions:
Pt testing 4 times a day
(DME) pen needle, diabetic [BD Ultra-Fine Kellee Pen Needle] 32 gauge x 5/32' Needle
Qty: 1,200 0RF
Rx Instructions:
As Directed
(DME) lancets [Color Lancets] 21 gauge Misc
Qty: 200 0RF
Rx Instructions:
Pt testing 4 times a day
(DME) pen needle, diabetic [BD Ultra-Fine Kellee Pen Needle] 32 gauge x 5/32' Needle
Qty: 200 0RF
Rx Instructions:
Pt taking insulin 4 times a day
insulin aspart U-100 [Novolog FlexPen U-100 Insulin] 100 unit/mL (3 mL) insulin pen
18 unit SC AC
insulin glargine [Lantus Solostar U-100 Insulin] 100 unit/mL (3 mL) insulin pen
37 unit SC HS
tacrolimus 0.5 mg Capsule
2 mg PO DAILY
metoprolol tartrate 75 mg Tablet
75 mg PO BID
Discontinued
meclizine 25 mg tablet
25 mg PO QID PRN (Reason: dizziness, nausea) Qty: 20 0RF
Discharge Orders:
Discharge Patient (As Directed); Ordered 07/17/24
Ordered By: Keke John
Care Plan Goals
Care Plan Goals:
Problem: Readiness for enhanced knowledge related to diagnosis and treatment plan
Goal: Understand your diagnosis and treatment plan needs, including medications if applicable.
Instructions: Know your diagnosis, underlying causes and treatment plan options, including medications if applicable. Consult with your health care team to learn about your diagnosis and treatment plan, including medications if applicable.
Discharge Date and Time
Discharge Date/Time: 07/17/24 10:47
Print Language: [place] CITIZEN
[2024-07-17] MEDS: NOVOLOG FLEXPEN 18 UNITS SC (09:44)
--- NOTE | 2024-07-17 10:55 | PTCARENOTE ---
Pt in Sinus Rhythm. Amiodarone gtt d/c'd. Amiodarone 400mg PO administered. Discharge order in place. Discharge instructions reviewed with patient. No further questions. IV site and telemetry box removed. Pt escorted to family members car by
wheelchair.
--- NOTE | 2024-07-17 11:31 | W.PN.UPDATE ---
Update Note
Progress Note Update
Patient had been seen by consultation by [facility]. He had been seen in their office in the past but then also saw Dr Hoang following that and then more recently saw Dr. Domingo for preoperative assessment. Patient had already been assessed by CT surgery
and has been discharged with cardiology plans based on consultation which had been performed the day prior. Patient is back in sinus rhythm. ECG reviewed. Patient also had been maintained on amiodarone. I did review the importance of close
follow-up and monitoring of this patient is on tacrolimus. Also stressed importance of communication with nephrology. This was reviewed with CT surgery staff who has been in contact with nephrology. Also I was able to speak with the patient who
understands the importance of his medications and reported that he would get his blood test for tacrolimus next week and will be following up with nephrology. Also stressed importance of follow-up with CT surgery and cardiology and I arranged a
follow-up visit on 07/27/2023. Date and time given to the patient
== END 2024-07-17 10:47 | disposition home or self-care (01) | DRG 164 ==
LOC: CVICU 05:06
PROVIDERS: Clinical Nurse Specialist Acute Care; Nurse Practitioner; Physician Assistant Medical; ADMITTING PHYSICIAN Thoracic Surgery (Cardiothoracic Vascular Surgery); FAMILY PHYSICIAN Physician Assistant; OTHER PHYSICIAN Internal Medicine Cardiovascular Disease; OTHER PHYSICIAN Internal Medicine Critical Care Medicine
PROC: 07T74ZZ Resection of Thorax Lymphatic, Percutaneous Endoscopic Approach (ICD-10-PCS; 2024-07-13)
PROC: 8E0W4CZ Robotic Assisted Procedure of Trunk Region, Percutaneous Endoscopic Approach (ICD-10-PCS; 2024-07-13)
PROC: 0BTG4ZZ Resection of Left Upper Lung Lobe, Percutaneous Endoscopic Approach (ICD-10-PCS; 2024-07-13)
PROC: 30233R1 Transfusion of Nonautologous Platelets into Peripheral Vein, Percutaneous Approach (ICD-10-PCS; 2024-07-14)
DX: C7A.090 Malignant carcinoid tumor of the bronchus and lung (principal); D84.821 Immunodeficiency due to drugs; Z94.0 Kidney transplant status; N25.81 Secondary hyperparathyroidism of renal origin; E87.1 Hypo-osmolality and hyponatremia; T86.19 Other complication of kidney transplant; N17.9 Acute kidney failure, unspecified; E87.5 Hyperkalemia; E78.5 Hyperlipidemia, unspecified; E11.65 Type 2 diabetes mellitus with hyperglycemia; I48.0 Paroxysmal atrial fibrillation; E66.811 Obesity, class 1; I10 Essential (primary) hypertension; F17.210 Nicotine dependence, cigarettes, uncomplicated; D63.0 Anemia in neoplastic disease; Y83.0 Surgical operation with transplant of whole organ as the cause of abnormal reaction of the patient, or of later complication, without mention of misadventure at the time of the procedure; T46.2X5A Adverse effect of other antidysrhythmic drugs, initial encounter; Z68.30 Body mass index [BMI] 30.0-30.9, adult; Z79.4 Long term (current) use of insulin; Z79.60 Long term (current) use of unspecified immunomodulators and immunosuppressants; Z79.899 Other long term (current) drug therapy; Z79.01 Long term (current) use of anticoagulants
CPT/HCPCS: 88305; 88309; 32505; 36415; 71045; 80048; 80053; 80197; 81003; 82248; 82962; 83036; 83735; 85025; 85027; 85610; 85730; 86850; 86900; 86901; 86920; 87070; 88341; 88342; 93005; 99406; J2597; P9073

== ENCOUNTER → 2024-07-22 13:16 | Outpatient (REF) | payer OTHER, SELFPAY | LOC: RAD 13:16 | PROVIDERS: ATTENDING PHYSICIAN Thoracic Surgery (Cardiothoracic Vascular Surgery); FAMILY PHYSICIAN Physician Assistant | DX: R06.02 Shortness of breath (principal); R07.89 Other chest pain | CPT/HCPCS: 71046 ==

== ENCOUNTER 2024-08-10 00:48 | Observation (INO) | payer OTHER, SELFPAY ==
[2024-08-09 19:56] VITALS: BP 186/108
--- NOTE | 2024-08-09 20:21 | ED.GENMED ---
History of Present Illness
<GILBERTO Fitzpatrick - Last Filed: 08/09/24 23:30>
General
Chief Complaint: Chest Pain
Source: patient
Exam Limitations: none
Time Seen by Provider: 08/09/24 20:10
Nursing documentation reviewed up to this point in time: agreed with
History of Present Illness
History of Present Illness:
Patient is a 53-year-old male with past medical history of renal failure, renal transplant, lung cancer with recent left upper lobectomy /radical lymph node dissection, type 2 diabetes hypertension July 2024 presents to the ER complaining of
left-sided chest and rib pain, worse with deep breath. Family reports he was doing fine until today 4 PM. He does feel mildly short of breath.
He denies any recent fever chills. He denies any nausea vomiting abdominal pain.
Past History
<GILBERTO Fitzpatrick - Last Filed: 08/09/24 23:30>
Past History
ED Past Medical History: HTN, Hypercholesterolemia, NIDDM and Renal failure
ED Past Surgical History: Orthopedic (right shoulder surgery) and Other (Kidney transplant 05/07/20)
Social History
Tobacco: Non-smoker
Alcohol: None
Personal: (still inthe courts)
Living: with family
Employment: Employed
Family History
Family History: Other (He has a father with chronic renal failure)
Review of Systems
<GILBERTO Fitzpatrick - Last Filed: 08/09/24 23:30>
Review of Systems
Allergies reviewed?: Yes
All Other Systems: ROS reviewed and negative except as documented in HPI and ROS
Constitutional: Reports no symptoms; Denies fever, fatigue or chills
Respiratory: Reports other (pain to left rib area )
Cardiac: Reports no symptoms
ABD/GI: Reports no symptoms
: Reports no symptoms
Musculoskeletal: Reports no symptoms
Skin: Reports no symptoms
Psychiatric: Reports no symptoms
Phy Exam
<GILBERTO Fitzpatrick - Last Filed: 08/09/24 23:30>
General Physical Exam
General Presentation: no apparent distress
General age: appears stated age
General Skin: warm
General Habitus: normal
General Mental: alert
General Hydration: appears well hydrated
Cardiovascular Exam
Cardiovascular Exam: regular rate/rhythm, no murmur and normal peripheral pulses
Pulmonary Exam
Pulmonary Exam: no respiratory distress and other (Tender over lateral chest wall incisions no erythema no crepitus decreased on the left )
Gastrointestinal Exam
Gastrointestinal Exam: non tender and soft
Neurological Exam
Neurological Exam: alert and oriented x3
Hesham Coma Scale
Eye Opening: Spontaneous
Verbal Response: Oriented
Motor Response: Obeys Commands
GCS Total Score: 15
Musculoskeletal Exam
Musculoskeletal Exam: full ROM
Skin Exam
Skin Exam: normal color and warm/dry
Psychiatric Exam
Psychiatric Exam: normal mood/affect
Scores
<GILBERTO Fitzpatrick - Last Filed: 08/09/24 23:30>
Heart Score for Chest Pain Patients
STEMI patient?: Not applicable
Course
<GILBERTO Fitzpatrick - Last Filed: 08/09/24 23:30>
Orders/Labs/Results
Orders:
Orders
08/09/24 19:59
EKG [Electrocardiogram (*1)] Urgent
Reason for Study: Chest Pain
EKG- Treatment ONCE
08/09/24 20:27
CR Chest Portable - 1 View Urgent
Comment:
Reason For Exam: chest pain
Reason Study Needs to be Portable: Unable to Transport
08/09/24 20:28
Cardiac Monitoring- Treatment ONCE
IV Insert/Care/Rem.- Treatment PRN
08/09/24 20:34
Complete Blood Count/With Diff Urgent
Comprehensive Metabolic Panel Urgent
Troponin I Urgent
Comment: ADD ON SERUM
08/09/24 20:51
Add On- LAB Urgent
Tests Added?: troponin
CT Chest W/o Iv Contrast Urgent
Comment:
Reason For Exam: sob/pain s/p lobectomy
Morphine Sulfate 4 mg IV NOW STA
08/09/24 22:15
Venous Doppler Lwr Ext Bilat [US Periph Venous LOWER Ext Mitch] Urgent
Comment:
Reason For Exam: sob rule out dvt
08/09/24 22:25
0.9% Sodium Chloride 1000 ml [Nss] 1,000 ml IV BOLUS
08/09/24 22:28
D-Dimer Urgent
08/09/24 23:09
HYDROmorphone [Dilaudid] 0.5 mg .ROUTE .STK-MED ONE
08/09/24 23:10
HYDROmorphone [Dilaudid] 0.5 mg IV NOW STA
08/09/24 23:12
Urinalysis Reflex To Culture Urgent
Date Specimen was Collected: 08/09/24
Time Specimen was Collected: 23:12
Abnormal Lab Results
08/09/24 08/09/24
20:34 23:13
RBC 3.67 L 10^6/uL
(4.70-6.10)
Hgb 10.6 L g/dL
(13.0-18.0)
Hct 31.9 L %
(39.0-52.0)
Abs Immat Gran (auto) 0.1 H 10^3/uL
(0-0.05)
Absolute Monos (auto) 0.9 H 10^3/uL
(0.1-0.6)
Immature Gran % 1.3 H %
(0-0.5)
Lymphocytes % 14.2 L %
(20.5-51.1)
Monocytes % 9.5 H %
(1.7-9.3)
Sodium 134 L mmol/L
(135-145)
Potassium 5.5 H mmol/L
(3.5-5.1)
BUN 33 H mg/dl
(9-20)
Creatinine 1.5 H mg/dL
(0.7-1.3)
Glucose 238 H mg/dl
(70-99)
Calcium 11.0 H mg/dl
(8.4-10.2)
Alkaline Phosphatase 224 H U/L
(38-126)
Urine Glucose 3+ A
(Negative)
08/09/24 20:34
08/09/24 20:34
Vital Signs
Initial and Last Documented VS:
Initial Vital Signs
Temp Pulse Resp BP Pulse Ox
98.9 F 92 16 186/108 99
08/09/24 19:56 08/09/24 19:56 08/09/24 19:56 08/09/24 19:56 08/09/24 19:56
Last Documented Vital Signs
Temp Pulse Resp BP Pulse Ox
98.9 F 85 34 153/99 96
08/09/24 19:56 08/09/24 22:00 08/09/24 22:00 08/09/24 22:00 08/09/24 22:00
<Tariq Arias MD - Last Filed: 08/09/24 22:24>
Orders/Labs/Results
Orders:
Orders
08/09/24 19:59
EKG [Electrocardiogram (*1)] Urgent
Reason for Study: Chest Pain
EKG- Treatment ONCE
08/09/24 20:27
CR Chest Portable - 1 View Urgent
Comment:
Reason For Exam: chest pain
Reason Study Needs to be Portable: Unable to Transport
08/09/24 20:28
Cardiac Monitoring- Treatment ONCE
IV Insert/Care/Rem.- Treatment PRN
08/09/24 20:34
Complete Blood Count/With Diff Urgent
Comprehensive Metabolic Panel Urgent
Troponin I Urgent
Comment: ADD ON SERUM
08/09/24 20:51
Add On- LAB Urgent
Tests Added?: troponin
CT Chest W/o Iv Contrast Urgent
Comment:
Reason For Exam: sob/pain s/p lobectomy
Morphine Sulfate 4 mg IV NOW STA
08/09/24 22:15
Venous Doppler Lwr Ext Bilat [US Periph Venous LOWER Ext Mitch] Urgent
Comment:
Reason For Exam: sob rule out dvt
08/09/24 22:25
0.9% Sodium Chloride 1000 ml [Nss] 1,000 ml IV BOLUS
08/09/24 22:28
D-Dimer Urgent
08/09/24 23:09
HYDROmorphone [Dilaudid] 0.5 mg .ROUTE .STK-MED ONE
08/09/24 23:10
HYDROmorphone [Dilaudid] 0.5 mg IV NOW STA
08/09/24 23:12
Urinalysis Reflex To Culture Urgent
Date Specimen was Collected: 08/09/24
Time Specimen was Collected: 23:12
Abnormal Lab Results
08/09/24 08/09/24
20:34 23:13
RBC 3.67 L 10^6/uL
(4.70-6.10)
Hgb 10.6 L g/dL
(13.0-18.0)
Hct 31.9 L %
(39.0-52.0)
Abs Immat Gran (auto) 0.1 H 10^3/uL
(0-0.05)
Absolute Monos (auto) 0.9 H 10^3/uL
(0.1-0.6)
Immature Gran % 1.3 H %
(0-0.5)
Lymphocytes % 14.2 L %
(20.5-51.1)
Monocytes % 9.5 H %
(1.7-9.3)
Sodium 134 L mmol/L
(135-145)
Potassium 5.5 H mmol/L
(3.5-5.1)
BUN 33 H mg/dl
(9-20)
Creatinine 1.5 H mg/dL
(0.7-1.3)
Glucose 238 H mg/dl
(70-99)
Calcium 11.0 H mg/dl
(8.4-10.2)
Alkaline Phosphatase 224 H U/L
(38-126)
Urine Glucose 3+ A
(Negative)
08/09/24 20:34
08/09/24 20:34
Vital Signs
Initial and Last Documented VS:
Initial Vital Signs
Temp Pulse Resp BP Pulse Ox
98.9 F 92 16 186/108 99
08/09/24 19:56 08/09/24 19:56 08/09/24 19:56 08/09/24 19:56 08/09/24 19:56
Last Documented Vital Signs
Temp Pulse Resp BP Pulse Ox
98.9 F 85 34 153/99 96
08/09/24 19:56 08/09/24 22:00 08/09/24 22:00 08/09/24 22:00 08/09/24 22:00
<GILBERTO Fitzpatrick - Last Filed: 08/09/24 23:30>
MDM/Problems Addressed
MDM/Problems Addressed:
Patient is a 53-year-old male status post left lobectomy July 13 presents to the ER complaining of pain to the left rib/surgical site. Patient reports pain started today around 4 PM. He has had normal post pain but today pain was different and
worse. He does complain of little shortness of breath or pain with deep breath. He presents not hypoxic nontachycardic nontachypneic. He is afebrile denies any recent fever chills his white count is normal. He denies any rash. He denies any
abdominal pain. Patient eval by ED physician. Portable chest x-ray done which is similar to prior x-ray left perihilar opacity with this new small left pleural effusion. Patient is a renal transplant patient as discussed ED physician will plain
CAT scan without contrast ordered. CAT scan shows a left perihilar opacity which may resent postoperative changes. Patient was medicated for pain. Patient was eval by ED physician. Case discussed with CT surgery Dr. Shepherd on-call. Will check
D-dimer and bilateral venous extremity. Patient medicated for pain.
Patient with a normal white count afebrile no recent fever chills cough. Patient's BUN/creatinine minimally elevated 33 /1.5. Last creatinine was 1.0 on July 17. Patient's potassium minimally elevated at 5.5 glucose minimally elevated to 38.
Patient was given fluids
2310 CT surgery PA evaluating patient at bedside at this time. Ultrasound negative bilaterally
2323: d/c w/ PAC , will admit for continued monitoring
<GILBERTO Fitzpatrick - Last Filed: 08/09/24 23:30>
*Radiology
Radiology exam reviewed: radiology read reviewed
*Pulse Oximetry
Patient hypoxic: no
*EKG
Interpreted by ED Provider?: Yes
Heart Rate: 85
Rate: normal
Rhythm: sinus
Ischemia: no ischemia
*Critical Care Note
Total Time (30-74mins, 75-104mins- exclusive of procedures): Not Applicable
<GILBERTO Fitzpatrick - Last Filed: 08/09/24 23:30>
Patient Management
Discussion with other providers: [facility] (DR Shpeherd )
ED Attending Note
<GILBERTO Fitzpatrick - Last Filed: 08/09/24 23:30>
-
Portions of this chart may have been created with voice recognition software.� Occasional wrong word or��sound alike� substitutions may have occurred due to the inherent limitations of voice recognition software.
<Tariq Arias MD - Last Filed: 08/09/24 22:24>
ED Attending Note
Patient seen and examined by attending physician: Yes
ED Attending Note:
I have seen and evaluated the patient with a qoia-ev-htdi encounter. I have spoken to the advance practicer provider and involved in the medical history, the physical exam, medical decision making.
Evaluation and management service: agree unless noted differently below.
Results interpretation: agree unless noted differently below.
Focused HPI: 53-year-old male with a past medical history of hypertension, GERD, ESRD status post renal transplant, lung cancer status post partial lobectomy who presents to the emergency room for chest pain. Patient notably had left upper
lobectomy for a carcinoid tumor on 07/13/[address] Vargas. He says he had some soreness in his chest after the procedure but had generally been doing well. Tonight he says he was laying down and when he got up to go to the bathroom he noticed he
was having pain and it has gotten significantly worse since then. He reports a sharp pain in the left side worse with movement worse with breathing. He denies any shortness of breath although pain does limit his deep inspiration. He denies any
recent cough or fever. Denies any abdominal pain or vomiting. He denies any other complaints.
Physical exam: Awake and alert appears slightly uncomfortable. He is hypertensive but vital signs otherwise normal including normal pulse ox, normal respiratory rate, heart rate in the 80s. Breath sounds somewhat diminished at the lung base on the
left but no focal rales or rhonchi appreciated. Surgical incisions left chest wall well-healing no signs of infection. He does have marked tenderness of the left anterior lateral chest wall but no bruising. Abdomen nontender with no masses. No
lower extremity edema or calf tenderness. Good pulses throughout.
Medical Decision Makin-year-old male who is a few weeks out from a left upper lobectomy with Dr. Vargas presents with left-sided chest pain that started rather suddenly tonight. Vitals and exam as above. EKG shows a left bundle branch block
similar to prior. Stat chest x-ray shows no pneumothorax. Labs sent off including a CBC and a CMP�CMP shows mild renal insufficiency with a creatinine of 1.5 from baseline of 1 in the setting of known renal transplant. While PE is in the
differential diagnosis after surgery his pain is very reproducible to the touch and seems more incisional/chest wall pain rather than pulmonary; he has no tachycardia, no tachypnea, no hypoxia and given all the above my suspicion is that this is
likely not a PE however with acute onset pain must be considered. Will start with D-dimer and lower extremity ultrasound as ideally would avoid CTA in a renal transplant patient with an acute kidney injury. Check noncontrast CT of the chest.
Nurse practitioner discussed with cardiothoracic surgery who will evaluate. Treat symptomatically.
Discharge Plan
Departure
Patient Disposition: Admit
Date of Disposition: 08/09/24
Time of Disposition: 23:25
Admit to: CVICU
Admit to doctor: Joao
Presentation/result/management discussed w/ accepting MD/DO: DR Shepherd
Patient with high blood pressure during this ER visit?: Yes
Condition: Fair
Covid-19: Not Applicable
Discharge Problem:
Pleural effusion, Acute kidney injury, Pain
Prescriptions:
No Action
tacrolimus 0.5 MG capsule
1 mg PO HS
pantoprazole 40 MG tablet,delayed release (DR/EC)
40 mg PO DAILY
sildenafil 50 mg tablet
50 mg PO DAILYPRN PRN (Reason: ed)
mycophenolate sodium 180 mg tablet,delayed release (DR/EC)
360 mg PO BID
(DME) Contour Next Test Strips Strip
Qty: 200 0RF
Rx Instructions:
Pt testing 4 times a day
(DME) pen needle, diabetic [BD Ultra-Fine Kellee Pen Needle] 32 gauge x 5/32' Needle
Qty: 1,200 0RF
Rx Instructions:
As Directed
(DME) lancets [Color Lancets] 21 gauge Misc
Qty: 200 0RF
Rx Instructions:
Pt testing 4 times a day
(DME) pen needle, diabetic [BD Ultra-Fine Kellee Pen Needle] 32 gauge x 5/32' Needle
Qty: 200 0RF
Rx Instructions:
Pt taking insulin 4 times a day
insulin aspart U-100 [Novolog FlexPen U-100 Insulin] 100 unit/mL (3 mL) insulin pen
18 unit SC AC
insulin glargine [Lantus Solostar U-100 Insulin] 100 unit/mL (3 mL) insulin pen
37 unit SC HS
tacrolimus 0.5 mg Capsule
2 mg PO DAILY
metoprolol tartrate 75 mg Tablet
75 mg PO BID
cyclobenzaprine 10 mg Tablet
10 mg PO Q8HPRN PRN (Reason: muscle pain) Qty: 20 0RF
amiodarone 200 mg tablet
200 mg PO BID Qty: 60 1RF
Referrals:
Tita Resendez PA-C [Family Provider] -
Interventions
Interventions:
*Risk Screen - Suicide Last Done: 08/09/24 20:25
*General Assessment Last Done: 08/09/24 20:25
*Neglect/Abuse Screening Last Done: 08/09/24 20:25
*ED COVID-19 Vaccine History Last Done: 08/09/24 20:25
Discharge Date and Time
Print Language: ETHIOPIAN
[2024-08-09 20:25] VITALS: BMI 29.2
[2024-08-09 20:34] VITALS: BP 157/99
[2024-08-09 20:42] LABS: % Basophils 0.9 % (0-2); % Eosinophils 3.8 % (0-6); % Immature Granulocytes 1.3 % (0-0.5); % Lymphocytes 14.2 % (20.5-51.1); % Monocytes 9.5 % (1.7-9.3); % Neutrophils 70.3 % (42.2-75.2); Absolute Basophils 0.1 10^3/uL (0-0.2); Absolute Eosinophils 0.4 10^3/uL (0-0.7); Absolute Immature Granulocytes 0.1 10^3/uL (0-0.05); Absolute Lymphocytes 1.3 10^3/uL (1.2-3.4); Absolute Monocytes 0.9 10^3/uL (0.1-0.6); Absolute Neutrophils 6.4 10^3/uL (1.4-6.5); Hematocrit 31.9 % (39.0-52.0); Hemoglobin 10.6 g/dL (13.0-18.0); Mean Corp Hgb Conc. 33.2 g/dL (33.0-37.0); Mean Corpuscular Hgb 28.9 pg (27.0-31.0); Mean Corpuscular Volume 86.9 fL (80.0-94.0); Mean Platelet Volume 10.4 fL (7.4-10.4); Nucleated Red Blood Cells % 0 % (-); Platelet Count 394 10^3/uL (130-400); Red Blood Cell Count 3.67 10^6/uL (4.70-6.10); Red Cell Dist. Width 12.4 % (11.5-14.5); White Blood Cell Count 9.1 10^3/uL (4.8-10.8)
[2024-08-09 21:01] LABS: ALT (SGPT) 26 U/L (0-50); AST (SGOT) 29 U/L (17-59); Albumin 3.9 g/dl (3.5-5.0); Alkaline Phosphatase 224 U/L (38-126); Blood Urea Nitrogen 33 mg/dl (9-20); Carbon Dioxide 25 mmol/L (22-30); Chloride 101 mmol/L (98-107); Estimated Creatinine Clearance 53 ml/min; Glucose 238 mg/dl (70-99); Potassium 5.5 mmol/L (3.5-5.1); Sodium 134 mmol/L (135-145); Total Bilirubin 0.5 mg/dl (0.2-1.3); Total Protein 7.4 g/dl (6.3-8.2); eGFR 56.02
[2024-08-09] MEDS: MORPHINE SULFATE 4 MG IV (21:10)
[2024-08-09 21:14] VITALS: BP 147/98
[2024-08-09 21:19] LABS: Troponin I < 0.012 ng/ml
[2024-08-09 22:00] VITALS: BP 153/99
[2024-08-09 23:04] VITALS: BP 134/88
[2024-08-09] MEDS: NSS 1000 IV (23:05)
[2024-08-09] MEDS: DILAUDID 0.5 MG IV (23:10)
--- NOTE | 2024-08-09 23:12 | EDRN ---
CT surgery PA at bedside doing assessment on patient, patient complaining of more pain, meds ordered and given.
--- NOTE | 2024-08-09 23:15 | EDRN ---
PA for CT surgery wanted to switch the normal saline bolus over to 60ml/hr, patient had received about 100cc of the normal saline, and then switched over to 60mL/hr
[2024-08-09 23:20] LABS: Urine Albumin Negative (Neg - Trace); Urine Bilirubin Negative (Negative); Urine Character Clear (Clear); Urine Color Yellow; Urine Glucose 3+ (Negative); Urine Ketone Negative (Negative); Urine Leukocyte Negative (Negative); Urine Nitrite Negative (Negative); Urine Occult Blood Negative (Negative); Urine Urobilinogen Negative (Neg - 1+)
[2024-08-09 23:31] LABS: D-Dimer 6.02 ug/mlFEU (0.00-0.50)
[2024-08-10] VITALS (10 sets, daily range): BP systolic 92–176; BP diastolic 86–104; BMI 29.2; BMI 28.3
--- NOTE | 2024-08-10 00:13 | EDRN ---
Patients D-dimer came back and was elevated at 6.0, tiger texted the PA covering CT surgery, no further orders at this time
[2024-08-10] MEDS: HEPARIN 5000 UNITS SC ×2 (00:56→08:02)
[2024-08-10] MEDS: LOKELMA 10 GRAM PO ×2 (00:57→08:02)
--- NOTE | 2024-08-10 01:20 | HPS.HSE ---
Family Physician
-
Family Physician: Tita Resendez
Outpatient Card Player: Dr Jesus Domingo
Outpatient Dope Edger: Dr. Easton Parekh
Chief Complaint
-
-increased L chest wall pain
History of Present Illness
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 Vargas, paroxysmal a-fib postop, DM II, HTN, tobacco abuse,
hx SVT. He has been taking only Tylenol for his pain post surgery. Today around 4 pm, he felt that his L chest wall pain has significantly increased and he wasn't getting any relief from Tylenol; therefore, he presented to [facility] for evaluation. Pain
is reproducible with touch across L thoracic chest wall in band-like distribution, worse with cough or movement. He does Not appear in any distress or SOB during our conversation and denies any fever or chills or dyspnea. Incisions are healing well,
clear, dry, intact, no redness or warmth. There is no rash.
He was found to have increased Cr 1.5 (baseline 1.1-1.2) with K 5.5. Therefore, he underwent chest CT without contrast. It revealed new small-moderate loculated L pleural effusion with adjacent atelectasis. There was Left perihilar opacity with 2.6
x 2.8 cm more nodular focus which may represent postoperative changes, possible round atelectasis. There was unchanged Right basilar chronic scarring.
D-dimer was 6.0. Clinically, pt was not hypoxic (96-98% on RA) or tachycardic. Lower extremity US was unremarkable b/l. This was reviewed with the attending and chances of PE were believed to be low; therefore, he was started on sq Heparin q 12 h.
He was given his usual Lantus dose tonight and started on Lokelma for hyperkalemia. Small fluid bolus was give for elevated Cr. Pt noted that his sugars have been elevated recently and UO has increased. He denies any dysuria.
Medical History
Past Medical History
Past Medical History: Reports Arrhythmia (paroxysmal a-fib post lobectomy), HTN, IDDM and Renal Failure (s/p renal transplant (baseline Cr 1.1-1.2)- on Mycophenolate sodium and Tacrolimus. Has L arm AV fistula)
Additional Past Medical History:
Pulmonary Carcinoid, s/p Robotic-assisted thoracic surgery (RATS) with REYNALDO lobectomy on 07/13/[address] Vargas
Past Surgical History: Reports Other (REYNALDO lobectomy 07/13/24; L arm AV fistula)
Social History
Tobacco: Smoker
Living: With Family (staying with his cousin)
Family History
Family History: Not pertinent
Allergies / Home Medications
Allergies reflects when Allergies were last updated in [employer].
Home Medications with original date entered in [employer]
Allergy/Medication List:
Allergies
Allergy/AdvReac Type Severity Reaction Status Date / Time
shellfish derived Allergy Rash Verified 08/09/24 19:59
vancomycin Allergy feeling of Verified 08/09/24 19:59
body 'hot'
and some
'itching'
Review of Systems
-
History Source: Patient
A 12 point ROS was completed and negative except as noted: Yes
Constitutional: Reports No Symptoms
EENT: Reports No Symptoms
Respiratory: Reports No Symptoms
Cardiac: Reports No Symptoms
Abdomen/GI: Reports No Symptoms
: Reports No Symptoms
Musculoskeletal: Reports See HPI (L chest wall pain in band-like distribution from anterior, lateral and posterior)
Skin: Reports No Symptoms
Neurological: Reports No Symptoms
Endocrine: Reports Polyuria
Hematologic/Lymphatic: Reports No Symptoms
Psych: Reports No Symptoms
Physical Exam
Vital Signs
Vital Signs
Temp Pulse Resp BP Pulse Ox
98.9 F 78 18 134/88 98
08/09/24 19:56 08/10/24 00:45 08/10/24 00:45 08/09/24 23:04 08/10/24 00:45
Physical Exam
General: Well Developed, Well Nourished and No Apparent Distress
HEENT: NormoCephalic, Anicteric, Moist mucous membranes and PERRLA
Respiratory: Other (very decreased breath sounds on the L. Clear on the R. No rales or wheeze)
Cardiac: S1/S2 and Regular Rhythm (no murmur or rub)
GI: Soft, Non Tender, Non Distended and Normal Bowel Sounds
Genito-urinary: Clear Urine
Musculoskeletal: No Edema
Skin: Warm and Dry
Neuro: Awake, AO x 3, No Motor Deficits and Nonfocal/grossly intact
Psych: Calm and Intact Judgment/Insight
Laboratory Results
-
08/09/24 20:34
08/09/24 20:34
Laboratory Results
Total Bilirubin 0.5 mg/dl (0.2-1.3) 08/09/24 20:34
AST 29 U/L (17-59) 08/09/24 20:34
ALT 26 U/L (0-50) 08/09/24 20:34
Alkaline Phosphatase 224 U/L (38-126) H 08/09/24 20:34
Troponin I Cancelled 08/09/24 21:14
Data Reviewed
-
Diagnostic Radiology: Image Personally Visualized and interpreted and Report Reviewed by me
CT Scan: Report Reviewed by me and Discussed with Physician
Ultrasound: Report Reviewed by me
Medical Tests (Nuc Med, Echo, EKG etc): Image Personally Visualized and interpreted
Lab Data: Labs Reviewed by me and Discussed with Physician
Impression/Plan
-
IMPRESSION:
-increased L chest wall pain with new small-mod loculated L pleural effusion
-elevated D-dimer 6.0. US of lower extremities negative b/l
-MEGAN /Hyperkalemia
-hx renal transplant (baseline Cr 1.1-1.2)- on chronic immunosuppression with Tacrolimus and Mycophenolate sodium
-elevated Alk Phos, nl transaminases
-s/p RATS with L upper lobectomy on 07/13/[address] Vargas for pulmonary carcinoid
-DM II, on insulin
-HTN
-hx PAF post lobectomy
PLAN:
-slow IVF bolus for elevated Cr. Started Lokelma for hyperkalemia - follow closely. Will ask Nephrology to follow with hx renal transplant. Tacrolimus trough level is ordered for am.
-new L pleural effusion - will consider US with thoracentesis
-elevated D-dimer - will consider CTA if Cr improves. Pt is not hypoxic or tachycardic, no distress. No DVTs on LE US b/l
-continue Amiodarone and Lopressor for PAF. Monitor Qt on Amio and Tacrolimus
-continue Insulin for DM II (takes 18 units with meals tid and Lantus 37 units hs)
-reviewed findings with Dr. Shepherd
[2024-08-10 01:40] LABS: Glucose - Point of Care 246 mg/dl (70-99)
--- NOTE | 2024-08-10 02:15 | PTCARENOTE ---
Pt received from ED and admitted to 2260 @ 0130. Pt AAOx4, VSS, c/o L chest pain, see MAR, NSR per tele monitor HR 80s, +pulses, pox 96-98% on RA, lung sounds decreased on the left, R arm A/V fistula, +bs, voids clear yellow urine in urinal,
ambulates to the bathroom, PIV x1 intact infusing NS, plan of care discussed call ariza within reach
[2024-08-10] MEDS: PACERONE 200 MG PO ×2 (02:23→08:02)
[2024-08-10] MEDS: LANTUS 0.37 UNITS SC (02:24)
[2024-08-10] MEDS: NSS 500 IV (02:25)
[2024-08-10] MEDS: MYFORTIC DELAYED REL. 360 MG PO ×2 (02:27→11:38)
[2024-08-10] MEDS: PROGRAF 1 MG PO (02:58)
[2024-08-10] MEDS: ROXICODONE 5 MG PO ×3 (02:58→14:33)
[2024-08-10 03:10] LABS: Urine Albumin Negative (Neg - Trace); Urine Bilirubin Negative (Negative); Urine Character Clear (Clear); Urine Color Yellow; Urine Glucose 2+ (Negative); Urine Ketone Negative (Negative); Urine Leukocyte Negative (Negative); Urine Nitrite Negative (Negative); Urine Occult Blood Negative (Negative); Urine Urobilinogen Negative (Neg - 1+)
[2024-08-10 04:28] LABS: Glucose - Point of Care 277 mg/dl (70-99)
[2024-08-10 04:43] LABS: Hematocrit 30.9 % (39.0-52.0); Hemoglobin 10.2 g/dL (13.0-18.0); Mean Corpuscular Hgb 28.9 pg (27.0-31.0); Mean Corpuscular Volume 87.5 fL (80.0-94.0); Mean Platelet Volume 10.4 fL (7.4-10.4); Platelet Count 367 10^3/uL (130-400); Red Blood Cell Count 3.53 10^6/uL (4.70-6.10); Red Cell Dist. Width 12.4 % (11.5-14.5); White Blood Cell Count 8.3 10^3/uL (4.8-10.8)
[2024-08-10 05:10] LABS: ALT (SGPT) 23 U/L (0-50); AST (SGOT) 18 U/L (17-59); Albumin 3.9 g/dl (3.5-5.0); Alkaline Phosphatase 209 U/L (38-126); Blood Urea Nitrogen 25 mg/dl (9-20); Calcium 10.5 mg/dl (8.4-10.2); Carbon Dioxide 23 mmol/L (22-30); Chloride 97 mmol/L (98-107); Estimated Creatinine Clearance 72 ml/min; Glucose 285 mg/dl (70-99); Magnesium 1.1 mg/dl (1.6-2.3); Phosphorus 3.3 mg/dl (2.5-4.5); Sodium 132 mmol/L (135-145); Total Bilirubin 0.7 mg/dl (0.2-1.3); Total Protein 6.8 g/dl (6.3-8.2); eGFR > 60.00
[2024-08-10] MEDS: PROTONIX 40 MG PO (08:02)
[2024-08-10] MEDS: LOPRESSOR 75 MG PO (08:02)
[2024-08-10 09:09] LABS: Glucose - Point of Care 259 mg/dl (70-99)
--- NOTE | 2024-08-10 09:47 | PTCARENOTE ---
assumed care of pt from previous shift RN, sinus rhythm on tele, VSS. pt medicated for pain and nausea. pt send to IR.
[2024-08-10] MEDS: PROGRAF 2 MG PO (11:34)
[2024-08-10] MEDS: NOVOLOG FLEXPEN 18 UNITS SC (11:39)
--- NOTE | 2024-08-10 12:15 | W.DCSUMMARY ---
Discharge Summary
Discharge Data
Date of Admission: 08/10/24
Date of Discharge: 08/10/24
-
Pending Results: Yes (tacrolimus level (send out) from 08/10/24)
Hospital Course
Primary care physician: Tiat Resendez
Outpatient Resident Intern: Easton Parekh
Outpatient parliamentary archivist: Jesus Domingo
Inpatient consultants: Interventional radiology
Procedures:
1. Left thoracentesis
Primary Diagnosis:
1. Left pleural effusion
Secondary Diagnoses:
1. pulmonary carcinoid
2. Postoperative paroxysmal atrial fibrillation
3. Type 2 diabetes
4. Hypertension
5. Tobacco abuse
6. history of renal transplant on chronic immunosuppression
7. Hyperkalemia
HPI: 53 yo male known to CT service from recent robotic-assisted left upper lobectomy on 07/13/[address] Vargas. He has been taking only Tylenol for his pain post surgery. On 08/09, pain escalated in left chest wall region and was not relieved with
Tylenol. Pain is reproducible with touch across L thoracic chest wall in band-like distribution, worse with cough or movement. He presented to [facility] emergency room for further evaluation.
Hospital course: Patient was found to have increased Cr 1.5 (baseline 1.1-1.2) with K 5.5. Patient was treated with IV fluids and Lokelma. He underwent chest CT without contrast, which revealed new small-moderate loculated L pleural effusion with
adjacent atelectasis. D-dimer was 6.0. Clinically, pt was not hypoxic (96-98% on RA) or tachycardic. Bilateral lower extremity US was negative for DVT. Patient was evaluated by interventional radiology and underwent a left thoracentesis for [address] Torres (nephrology) instructed patient to reduce tacrolimus to 1 mg twice daily on discharge. Patient has had no episodes of atrial fibrillation on telemetry monitoring and amiodarone was decreased to 100 mg daily for discharge.
Pain has improved and patient deemed stable for discharge to home.
Home medication changes:
Tacrolimus changed to 1 mg twice daily
Amiodarone decreased to 200 mg daily
Discharge Plan
-
Patient Disposition: Home (Routine Discharge)
Discharge Diagnosis/Procedures: Left pleural effusion s/p thoracentesis
Condition: Good
Diet: Diabetic, Carb Controlled
Activity: No strenuous activity
Driving Restrictions: Not until seen by your Dr
Bathing Restrictions: OK to Shower
Referrals:
Tita Resendez PA-C [Family Provider] -
Prescriptions:
New
acetaminophen 325 mg Tablet
650 mg PO Q4HPRN PRN (Reason: MATIAS/ mild pain/ temp >/= 100.4F) Qty: 0 0RF
oxycodone 10 mg Tablet
5 mg PO Q4HPRN PRN (Reason: severe pain) Qty: 10 0RF
tacrolimus 1 mg capsule
1 mg PO Q12H Qty: 60 0RF
amiodarone 200 mg tablet
200 mg PO DAILY Qty: 30 0RF
Continued
pantoprazole 40 MG tablet,delayed release (DR/EC)
40 mg PO DAILY
sildenafil 50 mg tablet
50 mg PO DAILYPRN PRN (Reason: ed)
mycophenolate sodium 180 mg tablet,delayed release (DR/EC)
360 mg PO BID
(DME) Contour Next Test Strips Strip
Qty: 200 0RF
Rx Instructions:
Pt testing 4 times a day
(DME) pen needle, diabetic [BD Ultra-Fine Kellee Pen Needle] 32 gauge x 5/32' Needle
Qty: 1,200 0RF
Rx Instructions:
As Directed
(DME) lancets [Color Lancets] 21 gauge Misc
Qty: 200 0RF
Rx Instructions:
Pt testing 4 times a day
(DME) pen needle, diabetic [BD Ultra-Fine Kellee Pen Needle] 32 gauge x 5/32' Needle
Qty: 200 0RF
Rx Instructions:
Pt taking insulin 4 times a day
insulin aspart U-100 [Novolog FlexPen U-100 Insulin] 100 unit/mL (3 mL) insulin pen
18 unit SC AC
insulin glargine [Lantus Solostar U-100 Insulin] 100 unit/mL (3 mL) insulin pen
37 unit SC HS
metoprolol tartrate 75 mg Tablet
75 mg PO BID
cyclobenzaprine 10 mg Tablet
10 mg PO Q8HPRN PRN (Reason: muscle pain) Qty: 20 0RF
Discontinued
tacrolimus 0.5 MG capsule
1 mg PO HS
tacrolimus 0.5 mg Capsule
2 mg PO DAILY
amiodarone 200 mg tablet
200 mg PO BID Qty: 60 1RF
Discharge Orders:
Discharge Patient (As Directed); Ordered 08/10/24
Ordered By: Keke John
Care Plan Goals
Care Plan Goals:
Problem: Readiness for enhanced knowledge related to diagnosis and treatment plan
Goal: Understand your diagnosis and treatment plan needs, including medications if applicable.
Instructions: Know your diagnosis, underlying causes and treatment plan options, including medications if applicable. Consult with your health care team to learn about your diagnosis and treatment plan, including medications if applicable.
Discharge Date and Time
Print Language: [place] LUCI[place]
--- NOTE | 2024-08-10 13:38 | W.CON.NEPH ---
Consultation
-
Date/Time Consultation Requested: August 10, 2024 at 8 AM
Date/Time Consultation Performed: August 10, 2024 at 1 PM
Requesting Provider: Dr. Nicolás Shepherd
Performing Provider: Dr. Joao Gerber
Reason for Consultation: Acute kidney injury and hyperkalemia
Medical History
-
Chief Complaint: Acute kidney injury
History of Present Illness:
53 yo gentleman with hx renal transplant with chronic immuno suppression, pulmonary carcinoid with recent robotic-assisted left upper lobectomy on 07/13/[address] Vargas, paroxysmal a-fib postop, DM II, HTN, tobacco abuse, hx SVT. Presents with L
chest wall pain has significantly increased
He was found to have increased Cr 1.5 (baseline 1.1-1.2) with K 5.5. Therefore, he underwent chest CT without contrast. It revealed new small-moderate loculated L pleural effusion with adjacent atelectasis. There was Left perihilar opacity with 2.6
x 2.8 cm more nodular focus which may represent postoperative changes, possible round atelectasis.
D-dimer was 6.0. Clinically, pt was not hypoxic (96-98% on RA) or tachycardic. Lower extremity US was unremarkable b/l.
Renal consult in the setting of acute kidney injury and hyperkalemia. He responded to IV fluids and Lokelma.
Currently he has no chest pain shortness of breath nausea vomiting.
He is status post a thoracentesis of 350 cc today.
Past Medical History
Status post renal transplant atrial fibrillation diabetes hypertension.
Social History
Tobacco: Smoker
Family History
Family History: Not Pertinent
Allergies / Home Medications
Allergy/AdvReac Type Severity Reaction Status Date / Time
shellfish derived Allergy Rash Verified 08/09/24 19:59
vancomycin Allergy feeling of Verified 08/09/24 19:59
body 'hot'
and some
'itching'
�Medication �Instructions �Recorded �Confirmed �Type
pantoprazole 40 mg tablet,delayed 40 mg PO DAILY Gastrointestinal 12/28/21 08/10/24 History
release Issue
tacrolimus 0.5 mg capsule, 1 mg PO HS kidney transplant 12/28/21 08/10/24 History
immediate-release
mycophenolate sodium 180 mg 360 mg PO BID Autoimmune Disorder 09/14/22 08/10/24 History
tablet,delayed release
sildenafil 50 mg tablet 50 mg PO DAILYPRN PRN ed 09/14/22 08/10/24 History
blood sugar diagnostic (Contour #200 ea 12/17/22 07/03/24 Rx
Next Test Strips)
lancets 21 gauge (Color Lancets) #200 ea 12/17/22 07/03/24 Rx
pen needle, diabetic 32 gauge x #1,200 ea 12/17/22 08/10/24 Rx
5/32' (BD Ultra-Fine Kellee Pen
Needle)
pen needle, diabetic 32 gauge x #200 ea 12/20/22 08/10/24 Rx
5/32' (BD Ultra-Fine Kellee Pen
Needle)
insulin aspart U-100 100 unit/mL 18 unit SC AC Diabetes 04/19/24 08/10/24 History
(3 mL) subcutaneous pen (Novolog
FlexPen U-100 Insulin aspart)
insulin glargine 100 unit/mL (3 37 unit SC HS Diabetes 04/19/24 08/10/24 History
mL) subcutaneous pen (Lantus
Solostar U-100 Insulin)
metoprolol tartrate 75 mg tablet 75 mg PO BID Heart 05/29/24 08/10/24 History
Disease/Condition
tacrolimus 0.5 mg capsule, 2 mg PO DAILY kidney transplant 05/29/24 08/10/24 History
immediate-release
amiodarone 200 mg tablet 200 mg PO BID paroxysmal atrial 07/17/24 08/10/24 Rx
fibrillation #60 tabs
cyclobenzaprine 10 mg tablet 10 mg PO Q8HPRN PRN muscle pain 07/17/24 08/10/24 Rx
#20 tabs
oxycodone 10 mg tablet 5 mg (1/2 x 10 mg) PO Q4HPRN PRN 08/10/24 Rx
severe pain #10 tabs
Review of Systems
-
Mild left sided pain near rib cage
All other systems: Negative unless noted
Physical Exam
Vital Signs
Vital Signs
Temp Pulse Resp BP Pulse Ox
98.5 F 101 20 155/99 98
08/10/24 11:50 08/10/24 11:46 08/10/24 11:50 08/10/24 11:46 08/10/24 11:50
Lab Results
WBC 8.3 10^3/uL (4.8-10.8) 08/10/24 04:25
RBC 3.53 10^6/uL (4.70-6.10) L 08/10/24 04:25
Hgb 10.2 g/dL (13.0-18.0) L 08/10/24 04:25
Hct 30.9 % (39.0-52.0) L 08/10/24 04:25
Plt Count 367 10^3/uL (130-400) 08/10/24 04:25
Sodium 132 mmol/L (135-145) L 08/10/24 04:25
Potassium 5.0 mmol/L (3.5-5.1) 08/10/24 04:25
Chloride 97 mmol/L (98-107) L 08/10/24 04:25
Carbon Dioxide 23 mmol/L (22-30) 08/10/24 04:25
BUN 25 mg/dl (9-20) H 08/10/24 04:25
Creatinine 1.1 mg/dL (0.7-1.3) 08/10/24 04:25
eGFR > 60.00 08/10/24 04:25
Glucose 285 mg/dl (70-99) H 08/10/24 04:25
Calcium 10.5 mg/dl (8.4-10.2) H 08/10/24 04:25
Phosphorus 3.3 mg/dl (2.5-4.5) 08/10/24 04:25
Albumin 3.9 g/dl (3.5-5.0) 08/10/24 04:25
Physical Exam
General no acute distress
HEENT no cephalic atraumatic extraocular muscle intact no scleral icterus no JVD neck supple
lungs clear to auscultation bilateral
heart regular S1-S2 positive
abdomen soft nontender positive bowel sounds
extremities no edema pulses present bilateral
Neurologically nonfocal alert and oriented x 3
Skin no lesions no abrasions no petechiae
Psych normal affect no bizarre behavior
Data Reviewed
-
Radiology: Image Personally Visualized and interpreted (Chest x-ray no infiltrate and no pneumothorax)
Assessment/Plan
-
Assessment:
MEGAN on presentation with hyperkalemia
donor kidney transplant May 2020
Diabetes mellitu
Hypertension with urgency on presentation
ESRD previously prior to transplant
Atrial fibrillation,
BPH on tamsulosin
Left radiocephalic AV fistula remaining patent
Chronic immunosuppression with tacrolimus and mycophenolate
Status post thoracentesis status post partial left lobectomy
Plan:
Acute kidney injury secondary to a prerenal responded to IV fluids.
Creatinine is at baseline potassium has normalized.
Continue immunosuppressive therapy./Currently mycophenolate twice daily, tacrolimus 1 mg at bedtime with 2 mg in the morning
Tacrolimus level pending
Lokelma ordered x 3 doses I will discontinue remaining as potassium normalized
[2024-08-10] MEDS: NOVOLOG FLEXPEN SC (14:35)
[2024-08-10] MEDS: FLEXERIL 10 MG PO (15:20)
--- NOTE | 2024-08-10 15:24 | CM ---
spoke to pt in room, he is prev indep, [place] with 2 steps marika enriquez. he denies any dc planning needs or dme's. plan is for dc to home when medically stable.
--- NOTE | 2024-08-10 16:16 | PTCARENOTE ---
tele monitor and IV line removed. Discharge instructions, mediation list and follow up appointment reviewed w the pt, questions encouraged.
== END 2024-08-10 16:29 | disposition home or self-care (01) ==
LOC: CVICU 00:48
PROVIDERS: Nurse Practitioner; Physician Assistant Medical; ADMITTING PHYSICIAN Thoracic Surgery (Cardiothoracic Vascular Surgery); EMERGENCY PHYSICIAN Emergency Medicine; FAMILY PHYSICIAN Physician Assistant; OTHER PHYSICIAN Internal Medicine Nephrology
DX: J90 Pleural effusion, not elsewhere classified (principal); R07.81 Pleurodynia; F17.200 Nicotine dependence, unspecified, uncomplicated; N17.9 Acute kidney failure, unspecified; E87.5 Hyperkalemia; Y83.0 Surgical operation with transplant of whole organ as the cause of abnormal reaction of the patient, or of later complication, without mention of misadventure at the time of the procedure; T86.19 Other complication of kidney transplant; I48.0 Paroxysmal atrial fibrillation; D84.821 Immunodeficiency due to drugs; N40.0 Benign prostatic hyperplasia without lower urinary tract symptoms; Z79.4 Long term (current) use of insulin; Z79.899 Other long term (current) drug therapy; Z90.2 Acquired absence of lung [part of]
CPT/HCPCS: 32555; 71045; 71250; 80053; 81003; 82962; 83735; 84100; 84484; 85025; 85027; 85379; 93005; 93970; 96361; 96374; 96375; 99285; G0378

== ENCOUNTER → 2024-08-24 11:29 | Outpatient (REF) | payer OTHER, SELFPAY | LOC: RAD 11:29 | PROVIDERS: ATTENDING PHYSICIAN Physician Assistant | DX: R06.89 Other abnormalities of breathing (principal); Z87.09 Personal history of other diseases of the respiratory system | CPT/HCPCS: 71046 ==

== ENCOUNTER → 2024-09-25 10:49 | Outpatient (REF) | payer OTHER, SELFPAY | LOC: HWRAD 10:49 | PROVIDERS: ATTENDING PHYSICIAN Thoracic Surgery (Cardiothoracic Vascular Surgery); FAMILY PHYSICIAN Physician Assistant | DX: Z98.890 Other specified postprocedural states (principal); R06.02 Shortness of breath; R07.1 Chest pain on breathing | CPT/HCPCS: 71250 ==